=== PATIENT | female | born 1965 | race African-American/Black ===

== ENCOUNTER → 2016-07-19 | Outpatient (CLI) | payer MEDICARE, OTHER ==
[2016-03-02 15:00] VITALS: BP 144/86
[~2016-07-19] MED LIST: ACET500T33 PO; AMOX1TAB11 PO; ASPI81TA44 PO; BACL10TA PO; CALC600T11 PO; CHOL10007 PO; FLUT16SP NS; GABA-585 PO; HYDR-2666 PO; LISI-334 PO; LORA10TA3 PO; MULT1TAB42 PO; NITR100C62 PO; SERT100T8 PO; TRAM50TA PO; TRAZ50TA15 PO; TRIA15CR TP; hctz PO
--- NOTE | 2016-07-19 14:23 | KCIC ---
PROCEDURE Pelvic ultrasound. HISTORY Menorrhagia with regular cycle. TECHNIQUE Real-time ultrasound imaging of the pelvis using transabdominal window is performed. COMPARISON None. FINDINGS Enlarged myomatous uterus. Uterus measures 14.5 x 5.7 x 7.9 cm. There is a mostly calcified fibroid anteriorly towards the fundus measuring 1.9 x 1.5 x 1.6 cm. There is a hypoechoic fibroid in the mid uterus anteriorly measuring 1.7 x 2 x 1.9 cm. There is a partially calcified fibroid inferiorly in the anterior uterus measuring 3.4 x 3.5 x 3 cm. The endometrial stripe is normal measuring 5 millimeters. Incidentally visualized urinary bladder is unremarkable. The right ovary measures 3.1 x 2.1 x 4 cm. The left ovary measures 2.7 x 1.5 x 2.2 cm. There is normal blood flow in the ovaries. There is no pelvic free fluid. IMPRESSION 1. Enlarged myomatous uterus. Three anterior uterine fibroids are identified. 2. Normal blood flow in the ovaries. 3. The endometrial stripe is normal. Electronically signed by: Nestor Romo MD (Jul 19, 2016 14:22:04)
== END | disposition home or self-care (01) ==
LOC: KCIC US 10:53
PROVIDERS: ATTEND Family Medicine
DX: N85.2 Hypertrophy of uterus (principal); D25.9 Leiomyoma of uterus, unspecified
CPT/HCPCS: 76856

== ENCOUNTER → 2016-08-23 | Outpatient (CLI) | payer MEDICARE, OTHER ==
[2016-03-02 15:00] VITALS: BP 144/86
--- NOTE | 2016-08-23 15:54 | KCIC ---
PROCEDURE MRI cervical spine without contrast. HISTORY Upper extremity radiculopathy. Symptoms for months. Cerebral palsy. TECHNIQUE Sagittal T1, sagittal T2, sagittal STIR, axial T2, and axial T2 gradient sequences are provided. Despite repeat sequences there is motion degradation. COMPARISON None at this institution. FINDINGS There is straightening of cervical lordosis but no subluxation. There is no worrisome marrow lesion or marrow edema. There is no cord signal abnormality. Cervicomedullary junction is unremarkable. Degenerative findings by individual level are estimated below, allowing for motion degradation. C2-C3: There is uncinate process spurring on the right without canal or foraminal compromise. C3-C4: There is a disc osteophyte complex with central protrusion, probably a protruding disc. This contacts the cord and minimally flattens the cord centrally, midline AP diameter of the thecal sac 7 millimeters. There is minimal foraminal narrowing. C4-C5: There is a disc osteophyte complex effacing the ventral CSF column and minimally flattening the cord, 8 millimeters midline AP diameter of the thecal sac. There is also probably minimal right foraminal narrowing. C5-C6: Disc osteophyte complex and central protrusion are noted, midline AP diameter of the thecal sac narrowed to 8 millimeters. There is also minimal uncinate process spurring, without foraminal narrowing. C6-C7: Disc bulge is noted without canal or foraminal compromise. C7-T1: Disc bulge is noted without canal or foraminal compromise. IMPRESSION - Degenerative changes and uncinate process spurring are noted throughout the cervical spine. Findings are most notable at C3-C4 through C5-C6. - Motion limited study despite repeat imaging. Electronically signed by: Filiberto Han MD (Aug 23, 2016 15:53:19)
== END | disposition home or self-care (01) ==
LOC: KCIC MRI 14:24
PROVIDERS: ATTEND Family Medicine
DX: M54.12 Radiculopathy, cervical region (principal)
CPT/HCPCS: 72141

== ENCOUNTER → 2016-09-18 | Outpatient (CLI) | payer MEDICARE, OTHER ==
[2016-03-02 15:00] VITALS: BP 144/86
[~2016-09-18] MED LIST changes: +BACL20TA PO; +FERR-26 PO; +HYDR12.58 PO; +IBUP-1060 PO; +PREG150C PO; +[UNRECOGNIZED DRUG - CODE] PO
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
== END | disposition home or self-care (01) ==
LOC: PNCL 12:43
PROVIDERS: ATTEND Anesthesiology
DX: M54.2 Cervicalgia (principal); M79.602 Pain in left arm
CPT/HCPCS: G0463

== ENCOUNTER → 2016-10-10 | Outpatient (CLI) | payer MEDICARE, OTHER ==
[2016-03-02 15:00] VITALS: BP 144/86
[~2016-10-10] MED LIST changes: +IOHEXOL 180 MG/ML 10 ML VIAL. ONE; +methylPREDNISolone ACETATE 40 MG/ML VIAL. ONE; +methylPREDNISolone ACETATE 80 MG/ML VIAL. ONE
--- NOTE | 2016-10-10 22:01 | PAIN ---
DATE OF SERVICE: 10/10/2016 PROGRESS NOTE FOR PAIN CLINIC DIAGNOSES: Cervical radiculopathy with cervical degenerative disk disease and cervicalgia. HISTORY OF PRESENT ILLNESS: The patient is a 51-year-old female, who returns for followup status post initial evaluation and the patient had a low grade fever at that time. She ____ her primary care physician, had this treated is afebrile now has been this way for over a week, returns with still significant pain in the base of the neck and shoulders, more on the left than the right, radiating to the mid and low back as well. The patient reports some low back pain as well, which seems to be separate from the upper neck and shoulder pain. The patient with degenerative disk changes as noted on her MRI scan with radiculopathy, but also some low back pain across the low back, which she reports is difficult to lie down with the pain in this area as well as in the neck and shoulders, again somewhat worse on the left side radiating to left arm and hand as previously. The patient reports 10 on a scale of 10, aching, shooting, stabbing, off and on, but is worse with lying down in the low back as well. The patient reports no new motor or sensory deficits, no new bowel or bladder incontinence or other complaints. PHYSICAL EXAMINATION: VITAL SIGNS: Today, the patient's blood pressure is 125/86, pulse 74, respirations are 18, temperature 98.5 degrees Fahrenheit, height is 5 feet 2 inches, weight is 218 pounds. GENERAL: The patient is awake, alert, oriented, appropriate, very pleasant demeanor. HEENT: Head shows normocephalic, atraumatic. Extraocular movements are intact and symmetrical. Oral cavity, mucous membranes are moist and pink. Dentition is intact. NECK: Shows anterior throat supple without palpable lymphadenopathy noted. Swallow reflex is symmetrical. CHEST: Shows normal with inspection. Breath sounds clear to auscultation bilaterally. HEART: Shows S1 and S2 clear. ABDOMEN: Soft, nontender, nondistended. BACK: Shows spine grossly midline. Cervical paraspinous musculature shows symmetrical on inspection with palpation shows some moderate tenderness with palpation bilaterally in the inferior and middle aspect of the cervical paraspinous musculature, slightly more on the left than the right with some hypertrophy noted in the left trapezius compared to the right side, but no specific trigger points or radiation of pain noted. EXTREMITIES: Upper extremity show atrophy on the right upper extremity. Once again, left shows 2+/4 in the biceps tendons. 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 Options were discussed with the patient. We will proceed with a cervical epidural steroid injection today with fluoroscopic guidance. Risks were then discussed including, but not limited to bleeding, infection, possibility of epidural hematoma, subsequent neurologic compromise, dural puncture, headaches, spinal cord and/or nerve damage, side effects of steroid medication and poor results regarding pain control. The patient understands and wishes to proceed. The patient will return to clinic in approximately 2 weeks for followup, was counseled on return appointment, activity level and side effects to be aware of. DIAGNOSIS: Cervical radiculopathy with cervical degenerative disk disease. PROCEDURE: Cervical epidural steroid injection in translaminar approach at the C6-C7 level using C-arm fluoroscopic guidance under sterile prep and drape using local anesthetic. MEDICATIONS INJECTED: Depo-Medrol 120 mg plus 5 mL of preservative-free normal saline and 2 mL of Isovue for contrast. CONDITION AT DISCHARGE: Stable. The patient tolerated procedure well, had no complications. SUSAN RDZ MD DR: ANABELLA/juan JOB#: [id number] / [id number]
== END | disposition home or self-care (01) ==
LOC: PNCL 10:43
PROVIDERS: ATTEND Anesthesiology
DX: M50.123 Cervical disc disorder at C6-C7 level with radiculopathy (principal); I10 Essential (primary) hypertension; M19.90 Unspecified osteoarthritis, unspecified site; F32.9 Major depressive disorder, single episode, unspecified; Z86.69 Personal history of other diseases of the nervous system and sense organs
CPT/HCPCS: 62321; J1030; J1040

== ENCOUNTER → 2016-11-08 | Outpatient (CLI) | payer MEDICARE, OTHER ==
[2016-03-02 15:00] VITALS: BP 144/86
[~2016-11-08] MED LIST changes: -CALC600T11 PO; +CALC600T23 PO; +CHOL100014 PO; -CHOL10007 PO; -HYDR-2666 PO; +HYDR-2758 PO
--- NOTE | 2016-11-09 02:57 | PAIN ---
DATE OF SERVICE: 11/08/2016 PROGRESS NOTE FOR PAIN CLINIC DIAGNOSES: 1. Cervical radiculopathy with cervical degenerative disk disease and cervicalgia. 2. Low back pain with lumbar degenerative disk disease. HISTORY OF PRESENT ILLNESS: The patient is a 51-year-old female who returns for followup status post cervical epidural steroid injection x 1. The patient reports no significant decrease in her pain in the base of the neck and left upper extremity. The patient reports still significant pain, rated at 10 on a scale of 10. Her chief complaint today; however, is low back pain, which she has had previously, but has been much worse over the past few weeks with a tingling, burning sensation, stabbing, aching and sharp. The patient reports it is becoming worse in the low back itself even with minimal weightbearing. The patient is generally in a wheelchair, but with changing positions, transferring from wheelchair to standing or beds or chairs is becoming much more noticeable. The patient reports it awakens her from sleep at night in the neck and the low back, reports no new motor or sensory deficits, no new bowel or bladder incontinence, but still significant pain is noted. PHYSICAL EXAMINATION: VITAL SIGNS: The patient's blood pressure 132/69, pulse 81, respirations are 20, temperature is 98.0 degrees Fahrenheit. GENERAL: The patient is awake, alert, oriented, is appropriate, very pleasant demeanor. HEENT: Head shows normocephalic, atraumatic. Extraocular movements are intact and symmetrical. Oral cavity, mucous membranes are moist and pink. Dentition is intact. NECK: Shows anterior throat supple. Posterior cervical musculature shows some mild tenderness with palpation, but only in the inferior aspect of the cervical paraspinous musculature without radiation. Neck shows good rotational motion with some slight limitations in extension, but not with forward flexion. CHEST: Shows normal on inspection. Breath sounds are clear to auscultation bilaterally. HEART: Shows S1 and S2 clear. ABDOMEN: Soft, obese, nontender, nondistended. No palpable organomegaly is noted. BACK: Shows spine grossly in the midline. Lumbar paraspinous musculature is very firm with some moderate tenderness throughout the upper, middle and lower distribution of paraspinous muscles, but only diffusely. No radiation. EXTREMITIES: Upper right extremity with some atrophy and contracture. Left upper extremity is normal in appearance with good certified surgical tech/first assistant strength rated as a 5/5. Lower extremities showed deep tendon reflexes 1+ in the patellar and tendo calcaneus tendons. Motor exam is approximately 4 on a scale of 5 on the left side and 3-4 on a scale 5 on the right side with dorsiflexion, extension. The patient is wearing a supportive brace with some foot drop noted on the right side as well without complete . Options were discussed with the patient. The patient's old chart was reviewed as her current medication regimen updated. Current review of systems updated today as well. We will proceed with a lumbar epidural steroid injection today with fluoroscopic guidance. Risks were again discussed including, but not limited to bleeding, infection, possibility of epidural hematoma and subsequent neurologic compromise, dural puncture, headaches, spinal cord and/or nerve damage, side effects of steroid medication and poor results regarding pain control. The patient understands and wishes to proceed. The patient will return to clinic in approximately 2 weeks for followup. She was counseled as to return appointment, activity level and side effects to be aware of. DIAGNOSIS: Lumbar degenerative disk disease with low back pain. PROCEDURE: Lumbar epidural steroid injection in translaminar approach at the L4-L5 level using C-arm fluoroscopic guidance under sterile prep and drape using local anesthetic. MEDICATION INJECTED: 120 mg Depo-Medrol plus 10 mL of preservative-free normal saline and 2 mL of Isovue for contrast. CONDITION AT DISCHARGE: Stable. The patient tolerated procedure well, had no complications. SUSAN RDZ MD DR: ANABELLA/juan JOB#: [id number] / [id number]
== END | disposition home or self-care (01) ==
LOC: PNCL 13:56
PROVIDERS: ATTEND Anesthesiology
DX: M51.36 Other intervertebral disc degeneration, lumbar region (principal); M50.10 Cervical disc disorder with radiculopathy, unspecified cervical region; I10 Essential (primary) hypertension; M19.90 Unspecified osteoarthritis, unspecified site; F32.9 Major depressive disorder, single episode, unspecified; Z86.69 Personal history of other diseases of the nervous system and sense organs; Z87.39 Personal history of other diseases of the musculoskeletal system and connective tissue
CPT/HCPCS: 62323; J1030; J1040

== ENCOUNTER → 2016-12-06 | Outpatient (CLI) | payer MEDICARE, OTHER ==
[2016-03-02 15:00] VITALS: BP 144/86
== END | disposition home or self-care (01) ==
LOC: PNCL 11:35
PROVIDERS: ATTEND Anesthesiology
DX: M51.16 Intervertebral disc disorders with radiculopathy, lumbar region (principal); I10 Essential (primary) hypertension; M19.90 Unspecified osteoarthritis, unspecified site; F32.9 Major depressive disorder, single episode, unspecified; Z87.39 Personal history of other diseases of the musculoskeletal system and connective tissue; Z86.69 Personal history of other diseases of the nervous system and sense organs
CPT/HCPCS: 62323; J1030; J1040

== ENCOUNTER 2018-01-17 10:24 | Inpatient (IN) | payer MEDICARE, OTHER ==
[~2018-01-17] VITALS: Ht 157.5 cm; Wt 100.8 kg
[~2018-01-17 10:24] MED LIST changes: -ASPI81TA44 PO; +ASPI81TA59 PO; +CEFP100T PO; -FERR-26 PO; +FERR325T14 PO; +Fluconazole PO; -IOHEXOL 180 MG/ML 10 ML VIAL. ONE; +TRAZ-85 PO; -TRAZ50TA15 PO; +VANC500V PO; -methylPREDNISolone ACETATE 40 MG/ML VIAL. ONE; -methylPREDNISolone ACETATE 80 MG/ML VIAL. ONE
--- NOTE | 2018-01-17 11:05 | PHYS DOC ---
Past Medical History Past Medical History: Hypertension, UTI, Other Additional Past Medical Histor: cerebral palsy, prediabetes, MRDD Past Surgical History: Other Additional Past Surgical Histo: right hip Alcohol Use: None Drug Use: None Adult General Chief Complaint Chief Complaint: CELLULITIS HPI HPI 52-year-old female presenting to the emergency department today with right- sided cellulitis. This started 2-3 days ago. He describes a mild pain that is nonradiating intermittent. She is here with her healthcare worker. She accidentally neck today with right side of her leg and has a small wound. Review of systems is negative for chest pain shortness of breath abdominal pain nausea vomiting. All other review of systems is negative unless otherwise noted in history of present illness. ED course: 52-year-old female presenting to the emergency department today with right lower extremity. The patient had been treated with intravenous Rocephin along with oral Keflex to go home with however her cellulitis is not improving. Given the patient's failure of outpatient antibiotic therapy will give the patient IV vancomycin and admit the patient for IV antibiotics for treatment of acute cellulitis. I discussed with Dr. Sage who accepted the patient for admission. basic bridge orders placed. I also placed a consult for infectious disease physician to come to see the patient. Review of Systems Review of Systems SEE ABOVE. Current Medications Current Medications Current Medications Medications (Trade) Dose Ordered Sig/Law Start Time Stop Time Status Last Admin Dose Admin Ceftriaxone Sodium 50 ml @ 100 mls/hr 1X ONCE 01/17/18 11:15 01/17/18 11:21 DC Morphine Sulfate (Morphine Sulfate) 2 mg PRN Q2HR PRN 01/17/18 11:30 01/18/18 11:29 Ondansetron HCl (Zofran) 4 mg PRN Q8HRS PRN 01/17/18 11:30 01/18/18 11:29 Sodium Chloride 1,000 ml @ 75 mls/hr [id number] 01/17/18 11:30 01/18/18 11:29 01/17/18 11:54 75 MLS/HR Vancomycin HCl (Vanco Per Pharmacy) 1 each PRN DAILY PRN 01/17/18 11:30 UNV Vancomycin HCl 2 gm/Sodium Chloride 500 ml @ 250 mls/hr 1X ONCE 01/17/18 11:30 01/17/18 13:29 01/17/18 11:54 250 MLS/HR Allergies Allergies Allergies Coded Allergies Type Severity Reaction Last Updated Verified CARISSA Inhibitors Allergy Intermediate Edema 01/17/18 Yes amphetamine Allergy Intermediate Edema 01/17/18 Yes dextroamphetamine Allergy Intermediate Edema 01/17/18 Yes lisinopril Allergy Intermediate Edema 01/17/18 Yes ziprasidone Allergy Intermediate Edema 01/17/18 Yes Physical Exam Physical Exam SEE ABOVE Constitutional: Well developed, well nourished, no acute distress, non-toxic appearance. [] HENT: Normocephalic, atraumatic, bilateral external ears normal, oropharynx moist, no oral exudates, nose normal. [] Eyes: PERRLA, EOMI, conjunctiva normal, no discharge. [] Neck: Normal range of motion, no tenderness, supple, no stridor. [] Cardiovascular:Heart rate regular rhythm, no murmur [] Lungs & Thorax: Bilateral breath sounds clear to auscultation [] Abdomen: Bowel sounds normal, soft, no tenderness, no masses, no pulsatile masses. [] Skin: Warm, dry, no erythema, no rash. [] Back: No tenderness, no CVA tenderness. [] Extremities: The patient's right lower extremity has mild swelling with erythema. It is warm to touch. Consistent with cellulitis. We kenan a line around the area of erythema and dated for monitoring. Neurologic: Alert and oriented X 3, normal motor function, normal sensory function, no focal deficits noted. [] Psychologic: Affect normal, judgement normal, mood normal. [] Current Patient Data Vital Signs Vital Signs Date Time Temp Pulse Resp B/P (MAP) Pulse Ox O2 Delivery O2 Flow Rate FiO2 01/17/18 10:25 98.6 71 24 143/84 (103) 96 Room Air 98.6 Lab Values Laboratory Tests Test 01/17/18 11:35 White Blood Count 6.6 x10^3/uL (4.0-11.0) Red Blood Count 4.76 x10^6/uL (3.50-5.40) Hemoglobin 12.7 g/dL (12.0-15.5) Hematocrit 38.9 % (36.0-47.0) Mean Corpuscular Volume 82 fL (79-100) Mean Corpuscular Hemoglobin 27 pg (25-35) Mean Corpuscular Hemoglobin Concent 33 g/dL (31-37) Red Cell Distribution Width 16.5 % (11.5-14.5) H Platelet Count 341 x10^3/uL (140-400) Neutrophils (%) (Auto) 43 % (31-73) Lymphocytes (%) (Auto) 42 % (24-48) Monocytes (%) (Auto) 10 % (0-9) H Eosinophils (%) (Auto) 3 % (0-3) Basophils (%) (Auto) 2 % (0-3) Neutrophils # (Auto) 2.8 x10^3uL (1.8-7.7) Lymphocytes # (Auto) 2.8 x10^3/uL (1.0-4.8) Monocytes # (Auto) 0.6 x10^3/uL (0.0-1.1) Eosinophils # (Auto) 0.2 x10^3/uL (0.0-0.7) Basophils # (Auto) 0.1 x10^3/uL (0.0-0.2) Sodium Level 137 mmol/L (136-145) Potassium Level 3.8 mmol/L (3.5-5.1) Chloride Level 103 mmol/L (98-107) Carbon Dioxide Level 30 mmol/L (21-32) Anion Gap 4 (6-14) L Blood Urea Nitrogen 11 mg/dL (7-20) Creatinine 0.6 mg/dL (0.6-1.0) Estimated GFR (Cockcroft-Gault) 128.0 Glucose Level 82 mg/dL (70-99) Calcium Level 9.8 mg/dL (8.5-10.1) Laboratory Tests 01/17/18 11:35 Laboratory Tests 01/17/18 11:35 EKG EKG [] Radiology/Procedures Radiology/Procedures [] Course & Med Decision Making Course & Med Decision Making Pertinent Labs and Imaging studies reviewed. (See chart for details) [] Dragon Disclaimer Dragon Disclaimer This electronic medical record was generated, in whole or in part, using a voice recognition dictation system. Departure Departure Impression: Primary Impression: Cellulitis of right leg Disposition: ADMITTED INPATIENT Admitting Physician: Xie. Lama Condition: STABLE Referrals: UNKNOWN PCP NAME (PCP) Patient Instructions: Cellulitis Scripts Cephalexin (KEFLEX) 250 Mg Capsule 1 CAP PO QID, #28 CAP Prov: ANTONIA BRADLEY MD 01/17/18 ANTONIA BRADLEY MD Jan 17, 2018 11:05
[2018-01-17] MEDS ORDERED: CEPH-263 PO (11:06)
[2018-01-17] MEDS ORDERED: VANCOMYCIN 2 GM in IV NORMAL SALINE 500ML BAG 500 ML IV ONE (11:30)
[2018-01-17] MEDS ORDERED: ONDANSETRON PF 4 MG/2 ML VIAL. IV PRN ×2 (11:30→14:00)
[2018-01-17] MEDS ORDERED: MORPHINE SULFATE 2 MG/ML VIAL. IV PRN ×2 (11:30→14:00)
[2018-01-17 11:54] LABS: BASO # 0.1 x10^3/uL (0.0-0.2); BASO % 2 % (0-3); EOS # 0.2 x10^3/uL (0.0-0.7); EOS % 3 % (0-3); HEMATOCRIT 38.9 % (36.0-47.0); HEMOGLOBIN 12.7 g/dL (12.0-15.5); LYMPH # 2.8 x10^3/uL (1.0-4.8); LYMPH % 42 % (24-48); MEAN CORPUSCULAR HEMOGLOBIN 27 pg (25-35); MEAN CORPUSCULAR HGB CONC 33 g/dL (31-37); MEAN CORPUSCULAR VOLUME 82 fL (79-100); MONO # 0.6 x10^3/uL (0.0-1.1); MONO % 10 % (0-9); NEUT # 2.8 x10^3uL (1.8-7.7); NEUT % 43 % (31-73); PLATELET COUNT 341 x10^3/uL (140-400); RED BLOOD COUNT 4.76 x10^6/uL (3.50-5.40); RED CELL DISTRIBUTION WIDTH 16.5 % (11.5-14.5); WHITE BLOOD COUNT 6.6 x10^3/uL (4.0-11.0)
[2018-01-17] MEDS: IV NORMAL SALINE 1000ML BAG 1,000 ML IV SCH (11:54)
[2018-01-17 12:03] LABS: CALCIUM 9.8 mg/dL (8.5-10.1); CREATININE 0.6 mg/dL (0.6-1.0); POTASSIUM 3.8 mmol/L (3.5-5.1)
[2018-01-17 13:30] VITALS: BP 138/79
[2018-01-17] MEDS ORDERED: traMADol 50 MG TABLET PO PRN (14:00)
[2018-01-17] MEDS ORDERED: ACETAMINOPHEN 325 MG TABLET. PO PRN (14:00)
[2018-01-17] MEDS ORDERED: DOCUSATE SODIUM 100 MG CAPSULE. PO PRN (14:00)
--- NOTE | 2018-01-17 14:02 | PDOC1 ---
History and Physical Date of Admission Date of Admission 01/17/18 Identification/Chief Complaint Chief Complaint rt leg cellulitis Source Source: Caregiver, Chart review, Patient History of Present Illness History of Present Illness HPI HPI 52-year-old female presenting to the emergency department today with right- sided cellulitis. PT HAS cerebral palsy, [place] and has a daycare assistant at bedside. pt can talk slowly, knows in hosp,but said [facility], knows the day, knows comes here for rt leg pain. daycare assistant said no fever, chills, was here 2 months ago for same thing. Went to urgent care on Saturday, got ceftriaxone x1, then takes keflex, came today since not better. The rt leg has a small open wound, with redness, swollen, tenderness. has diarrhea this week, last time today. Past Medical History Cardiovascular: HTN Pulmonary: No pertinent hx GI: No pertinent hx Heme/Onc: No pertinent hx Hepatobiliary: No pertinent hx Psych: Depression Rheumatologic: No pertinent hx Infectious disease: No pertinent hx, Other Renal/: No pertinent hx Endocrine: No pertinent hx Past Surgical History Past Surgical History: Total hip replacement Family History Family History: Diabetes, Heart Disease, Hypertension Social History Smoke: No ALCOHOL: none Drugs: None Current Problem List Problem List Problems Medical Problems: (1) Cellulitis of right leg Status: Acute Current Medications Current Medications Current Medications Medications (Trade) Dose Ordered Sig/Law Start Time Stop Time Status Last Admin Dose Admin Ceftriaxone Sodium 50 ml @ 100 mls/hr 1X ONCE 01/17/18 11:15 01/17/18 11:21 DC Morphine Sulfate (Morphine Sulfate) 2 mg PRN Q2HR PRN 01/17/18 11:30 01/18/18 11:29 Ondansetron HCl (Zofran) 4 mg PRN Q8HRS PRN 01/17/18 11:30 01/18/18 11:29 Sodium Chloride 1,000 ml @ 75 mls/hr [id number] 01/17/18 11:30 01/18/18 11:29 01/17/18 11:54 75 MLS/HR Vancomycin HCl (Vanco Per Pharmacy) 1 each PRN DAILY PRN 01/17/18 11:30 Vancomycin HCl 2 gm/Sodium Chloride 500 ml @ 250 mls/hr 1X ONCE 01/17/18 11:30 01/17/18 13:29 DC 01/17/18 11:54 250 MLS/HR Allergies Allergies Allergies Coded Allergies Type Severity Reaction Last Updated Verified CARISSA Inhibitors Allergy Intermediate Edema 01/17/18 Yes amphetamine Allergy Intermediate Edema 01/17/18 Yes dextroamphetamine Allergy Intermediate Edema 01/17/18 Yes lisinopril Allergy Intermediate Edema 01/17/18 Yes ziprasidone Allergy Intermediate Edema 01/17/18 Yes ROS Review of System CONSTITUTIONAL: No fever or chills EYES: No recent changes SKIN: No rash or itching CARDIOVASCULAR: No chest pain, syncope, palpitations, or edema RESPIRATORY: No SOB or cough GASTROINTESTINAL: No nausea, vomiting or abdominal pain NEUROLOGICAL: No headaches or weakness ENDOCRINE: No cold or heat intolerance GENITOURINARY: No urgency or frequency of urination MUSCULOSKELETAL: No back pain or joint pain LYMPHATICS: No enlarged lymph nodes PSYCHIATRIC: No anxiety or depression Physical Exam Physical Exam GEN.: No apparent distress. Alert and oriented. aaox2, talkes slowly, wheel chair bound. HEENT: Head is normocephalic, atraumatic NECK: Supple. LUNGS: Clear to auscultation. HEART: RRR, S1, S2 present. Peripheral pulses intact ABDOMEN: Soft, nontender. Positive bowel sounds. EXTREMITIES: Without any cyanosis. NEUROLOGIC: Normal speech, normal tone PSYCHIATRIC: Normal affect, normal mood. SKIN: rt leg middle part swollen, redness, lateral aspect has a small open wound, tenderness. Vitals Vitals Vital Signs Date Time Temp Pulse Resp B/P (MAP) Pulse Ox O2 Delivery O2 Flow Rate FiO2 01/17/18 13:30 98.7 67 138/79 (98) 97 Room Air 98.7 01/17/18 11:41 24 Labs Labs Laboratory Tests Test 01/17/18 11:35 01/17/18 13:23 White Blood Count 6.6 x10^3/uL (4.0-11.0) Red Blood Count 4.76 x10^6/uL (3.50-5.40) Hemoglobin 12.7 g/dL (12.0-15.5) Hematocrit 38.9 % (36.0-47.0) Mean Corpuscular Volume 82 fL (79-100) Mean Corpuscular Hemoglobin 27 pg (25-35) Mean Corpuscular Hemoglobin Concent 33 g/dL (31-37) Red Cell Distribution Width 16.5 % (11.5-14.5) Platelet Count 341 x10^3/uL (140-400) Neutrophils (%) (Auto) 43 % (31-73) Lymphocytes (%) (Auto) 42 % (24-48) Monocytes (%) (Auto) 10 % (0-9) Eosinophils (%) (Auto) 3 % (0-3) Basophils (%) (Auto) 2 % (0-3) Neutrophils # (Auto) 2.8 x10^3uL (1.8-7.7) Lymphocytes # (Auto) 2.8 x10^3/uL (1.0-4.8) Monocytes # (Auto) 0.6 x10^3/uL (0.0-1.1) Eosinophils # (Auto) 0.2 x10^3/uL (0.0-0.7) Basophils # (Auto) 0.1 x10^3/uL (0.0-0.2) Sodium Level 137 mmol/L (136-145) Potassium Level 3.8 mmol/L (3.5-5.1) Chloride Level 103 mmol/L (98-107) Carbon Dioxide Level 30 mmol/L (21-32) Anion Gap 4 (6-14) Blood Urea Nitrogen 11 mg/dL (7-20) Creatinine 0.6 mg/dL (0.6-1.0) Estimated GFR (Cockcroft-Gault) 128.0 Glucose Level 82 mg/dL (70-99) Calcium Level 9.8 mg/dL (8.5-10.1) Glucose (Fingerstick) 74 mg/dL (70-99) Laboratory Tests Test 01/17/18 11:35 01/17/18 13:23 White Blood Count 6.6 x10^3/uL (4.0-11.0) Red Blood Count 4.76 x10^6/uL (3.50-5.40) Hemoglobin 12.7 g/dL (12.0-15.5) Hematocrit 38.9 % (36.0-47.0) Mean Corpuscular Volume 82 fL (79-100) Mean Corpuscular Hemoglobin 27 pg (25-35) Mean Corpuscular Hemoglobin Concent 33 g/dL (31-37) Red Cell Distribution Width 16.5 % (11.5-14.5) Platelet Count 341 x10^3/uL (140-400) Neutrophils (%) (Auto) 43 % (31-73) Lymphocytes (%) (Auto) 42 % (24-48) Monocytes (%) (Auto) 10 % (0-9) Eosinophils (%) (Auto) 3 % (0-3) Basophils (%) (Auto) 2 % (0-3) Neutrophils # (Auto) 2.8 x10^3uL (1.8-7.7) Lymphocytes # (Auto) 2.8 x10^3/uL (1.0-4.8) Monocytes # (Auto) 0.6 x10^3/uL (0.0-1.1) Eosinophils # (Auto) 0.2 x10^3/uL (0.0-0.7) Basophils # (Auto) 0.1 x10^3/uL (0.0-0.2) Sodium Level 137 mmol/L (136-145) Potassium Level 3.8 mmol/L (3.5-5.1) Chloride Level 103 mmol/L (98-107) Carbon Dioxide Level 30 mmol/L (21-32) Anion Gap 4 (6-14) Blood Urea Nitrogen 11 mg/dL (7-20) Creatinine 0.6 mg/dL (0.6-1.0) Estimated GFR (Cockcroft-Gault) 128.0 Glucose Level 82 mg/dL (70-99) Calcium Level 9.8 mg/dL (8.5-10.1) Glucose (Fingerstick) 74 mg/dL (70-99) VTE Prophylaxis Ordered VTE Prophylaxis Devices: Yes VTE Pharmacological Prophylaxi: Yes Assessment/Plan Assessment/Plan rt leg cellulitits h/o cdiff HTN cerebral palsy, talks slow, wheel chair bound morbid obesity plan: id consult vanco for now wound cx pending wound care cdiff cont some home meds pain control dvt ppx MCKENZIE VALVERDE MD Jan 17, 2018 14:02
[2018-01-17] MEDS ORDERED: TRIAMCINOLONE ACETONIDE 0.1% TOPICAL CREAM 15GM TUBE. TP PRN (14:30)
[2018-01-17] MEDS ORDERED: GABAPENTIN 100 MG CAPSULE. PO SCH (14:30)
[2018-01-17 15:00] VITALS: BP 110/72
[2018-01-17] MEDS: SERTRALINE 50 MG TABLET. PO SCH (15:17)
[2018-01-17] MEDS: MULTIVITAMIN with MINERAL TABLET. PO SCH (15:18)
[2018-01-17] MEDS: CETIRIZINE HCL 10 MG TABLET. PO SCH (15:18)
[2018-01-17] MEDS: ASPIRIN CHEWABLE 81 MG TABLET. PO SCH (15:18)
[2018-01-17] MEDS: ENOXAPARIN 40 MG/0.4 ML SYRINGE. SQ SCH ×3 (15:19→20:47)
[2018-01-17] MEDS: BACLOFEN 10 MG TABLET. PO SCH ×2 (15:19→20:42)
[2018-01-17] MEDS: PREGABALIN 75 MG CAPSULE PO SCH ×2 (15:19→20:41)
--- NOTE | 2018-01-17 16:12 | RAD ---
Right lower leg ultrasound, 01/17/2018: HISTORY: Lower leg and ankle redness and swelling The area of clinical concern in the lower leg and ankle regions was carefully scanned. There is moderate diffuse subcutaneous edema. No mass is identified. No discrete fluid collection is seen to suggest abscess. Electronically signed by: Tony Rascon MD (01/17/2018 4:09 PM) [facility]
[2018-01-17] MEDS: VANCOMYCIN PER PHARMACY MC PRN (16:37)
[2018-01-17] MEDS: FERROUS SULFATE 325 MG TABLET. PO SCH (16:51)
[2018-01-17] MEDS: FLUTICASONE 50MCG/NASAL SPRAY 16GM BOTTLE. NS SCH (16:51)
[2018-01-17 19:00] VITALS: BP 104/64
[2018-01-17 22:56] VITALS: BP 104/73
[2018-01-18] MEDS: VANCOMYCIN 1.5 GM in IV NORMAL SALINE 500ML BAG 500 ML IV SCH ×2 (00:40→12:50)
[2018-01-18 02:50] VITALS: BP 107/63
[2018-01-18 05:05] LABS: BASO % 0 % (0-3); EOS # 0.2 x10^3/uL (0.0-0.7); EOS % 3 % (0-3); HEMATOCRIT 35.8 % (36.0-47.0); HEMOGLOBIN 11.5 g/dL (12.0-15.5); LYMPH # 2.9 x10^3/uL (1.0-4.8); LYMPH % 43 % (24-48); MEAN CORPUSCULAR HEMOGLOBIN 27 pg (25-35); MEAN CORPUSCULAR HGB CONC 32 g/dL (31-37); MEAN CORPUSCULAR VOLUME 83 fL (79-100); MONO # 0.4 x10^3/uL (0.0-1.1); MONO % 7 % (0-9); NEUT # 3.1 x10^3uL (1.8-7.7); NEUT % 47 % (31-73); PLATELET COUNT 291 x10^3/uL (140-400); RED CELL DISTRIBUTION WIDTH 16.3 % (11.5-14.5); WHITE BLOOD COUNT 6.6 x10^3/uL (4.0-11.0)
[2018-01-18 05:45] LABS: CREATININE 0.7 mg/dL (0.6-1.0); GFR 107.2; POTASSIUM 3.4 mmol/L (3.5-5.1)
[2018-01-18 07:00] VITALS: BP 132/82
[2018-01-18] MEDS ORDERED: POTASSIUM CHLORIDE 20 MEQ TABLET.ER. PO ONE (09:00)
[2018-01-18] MEDS: SERTRALINE 50 MG TABLET. PO SCH (09:04)
[2018-01-18] MEDS: BACLOFEN 10 MG TABLET. PO SCH ×3 (09:05→20:37)
[2018-01-18] MEDS: PREGABALIN 75 MG CAPSULE PO SCH ×2 (09:05→20:37)
[2018-01-18] MEDS: FERROUS SULFATE 325 MG TABLET. PO SCH ×3 (09:05→17:09)
[2018-01-18] MEDS: ASPIRIN CHEWABLE 81 MG TABLET. PO SCH (09:05)
[2018-01-18] MEDS: CETIRIZINE HCL 10 MG TABLET. PO SCH (09:05)
[2018-01-18] MEDS: MULTIVITAMIN with MINERAL TABLET. PO SCH (09:05)
[2018-01-18] MEDS: ENOXAPARIN 40 MG/0.4 ML SYRINGE. SQ SCH ×2 (09:06→20:37)
[2018-01-18] MEDS: HYDROcodone/APAP 5/325MG 1 TAB TABLET PO PRN (09:06)
[2018-01-18] MEDS: FLUTICASONE 50MCG/NASAL SPRAY 16GM BOTTLE. NS SCH (09:06)
[2018-01-18] MEDS: IV NORMAL SALINE 1000ML BAG 1,000 ML IV SCH (09:14)
--- NOTE | 2018-01-18 10:01 | PDOC ---
PROGRESS NOTES Chief Complaint Chief Complaint rt leg cellulitits h/o cdiff HTN cerebral palsy, wheel chair bound morbid obesity History of Present Illness History of Present Illness Right leg cellulitis actually looks better No midnight calls Afebrile Labs reviewed otherwise okay except for mild hypokalemia at 3.4 She complains of left arm pain to me today Plan: Continue IV antibiotics per ID KCl 40 by mouth 1 PT OT, other supportive meds We'll go home with her 24 hour care on discharge Vitals Vitals Vital Signs Date Time Temp Pulse Resp B/P (MAP) Pulse Ox O2 Delivery O2 Flow Rate FiO2 01/18/18 09:06 18 96 Room Air 01/18/18 07:00 98.8 71 132/82 (99) 98.8 Physical Exam General: Alert, Oriented X3, Cooperative, No acute distress Heart: Regular rate, Normal S1 Lungs: Clear Abdomen: Normal bowel sounds, Soft Extremities: No clubbing, No cyanosis Skin: No rashes, No breakdown Labs LABS Laboratory Tests Test 01/17/18 11:35 01/17/18 13:23 01/17/18 16:36 01/17/18 20:24 White Blood Count 6.6 x10^3/uL (4.0-11.0) Red Blood Count 4.76 x10^6/uL (3.50-5.40) Hemoglobin 12.7 g/dL (12.0-15.5) Hematocrit 38.9 % (36.0-47.0) Mean Corpuscular Volume 82 fL (79-100) Mean Corpuscular Hemoglobin 27 pg (25-35) Mean Corpuscular Hemoglobin Concent 33 g/dL (31-37) Red Cell Distribution Width 16.5 % (11.5-14.5) Platelet Count 341 x10^3/uL (140-400) Neutrophils (%) (Auto) 43 % (31-73) Lymphocytes (%) (Auto) 42 % (24-48) Monocytes (%) (Auto) 10 % (0-9) Eosinophils (%) (Auto) 3 % (0-3) Basophils (%) (Auto) 2 % (0-3) Neutrophils # (Auto) 2.8 x10^3uL (1.8-7.7) Lymphocytes # (Auto) 2.8 x10^3/uL (1.0-4.8) Monocytes # (Auto) 0.6 x10^3/uL (0.0-1.1) Eosinophils # (Auto) 0.2 x10^3/uL (0.0-0.7) Basophils # (Auto) 0.1 x10^3/uL (0.0-0.2) Sodium Level 137 mmol/L (136-145) Potassium Level 3.8 mmol/L (3.5-5.1) Chloride Level 103 mmol/L (98-107) Carbon Dioxide Level 30 mmol/L (21-32) Anion Gap 4 (6-14) Blood Urea Nitrogen 11 mg/dL (7-20) Creatinine 0.6 mg/dL (0.6-1.0) Estimated GFR (Cockcroft-Gault) 128.0 Glucose Level 82 mg/dL (70-99) Calcium Level 9.8 mg/dL (8.5-10.1) Glucose (Fingerstick) 74 mg/dL (70-99) 147 mg/dL (70-99) 99 mg/dL (70-99) Test 01/18/18 03:40 White Blood Count 6.6 x10^3/uL (4.0-11.0) Red Blood Count 4.30 x10^6/uL (3.50-5.40) Hemoglobin 11.5 g/dL (12.0-15.5) Hematocrit 35.8 % (36.0-47.0) Mean Corpuscular Volume 83 fL (79-100) Mean Corpuscular Hemoglobin 27 pg (25-35) Mean Corpuscular Hemoglobin Concent 32 g/dL (31-37) Red Cell Distribution Width 16.3 % (11.5-14.5) Platelet Count 291 x10^3/uL (140-400) Neutrophils (%) (Auto) 47 % (31-73) Lymphocytes (%) (Auto) 43 % (24-48) Monocytes (%) (Auto) 7 % (0-9) Eosinophils (%) (Auto) 3 % (0-3) Basophils (%) (Auto) 0 % (0-3) Neutrophils # (Auto) 3.1 x10^3uL (1.8-7.7) Lymphocytes # (Auto) 2.9 x10^3/uL (1.0-4.8) Monocytes # (Auto) 0.4 x10^3/uL (0.0-1.1) Eosinophils # (Auto) 0.2 x10^3/uL (0.0-0.7) Basophils # (Auto) 0.0 x10^3/uL (0.0-0.2) Sodium Level 143 mmol/L (136-145) Potassium Level 3.4 mmol/L (3.5-5.1) Chloride Level 107 mmol/L (98-107) Carbon Dioxide Level 30 mmol/L (21-32) Anion Gap 6 (6-14) Blood Urea Nitrogen 10 mg/dL (7-20) Creatinine 0.7 mg/dL (0.6-1.0) Estimated GFR (Cockcroft-Gault) 107.2 Glucose Level 90 mg/dL (70-99) Calcium Level 8.0 mg/dL (8.5-10.1) Review of Systems Review of Systems left Arm pain otherwise rest of ROS 14 point negative Assessment and Plan Assessmemt and Plan Problems Medical Problems: (1) Cellulitis of right leg Status: Acute Comment Review of Relevant I have reviewed the following items sarah (where applicable) has been applied. Labs Laboratory Tests Test 01/17/18 11:35 01/17/18 13:23 01/17/18 16:36 01/17/18 20:24 White Blood Count 6.6 x10^3/uL (4.0-11.0) Red Blood Count 4.76 x10^6/uL (3.50-5.40) Hemoglobin 12.7 g/dL (12.0-15.5) Hematocrit 38.9 % (36.0-47.0) Mean Corpuscular Volume 82 fL (79-100) Mean Corpuscular Hemoglobin 27 pg (25-35) Mean Corpuscular Hemoglobin Concent 33 g/dL (31-37) Red Cell Distribution Width 16.5 % (11.5-14.5) Platelet Count 341 x10^3/uL (140-400) Neutrophils (%) (Auto) 43 % (31-73) Lymphocytes (%) (Auto) 42 % (24-48) Monocytes (%) (Auto) 10 % (0-9) Eosinophils (%) (Auto) 3 % (0-3) Basophils (%) (Auto) 2 % (0-3) Neutrophils # (Auto) 2.8 x10^3uL (1.8-7.7) Lymphocytes # (Auto) 2.8 x10^3/uL (1.0-4.8) Monocytes # (Auto) 0.6 x10^3/uL (0.0-1.1) Eosinophils # (Auto) 0.2 x10^3/uL (0.0-0.7) Basophils # (Auto) 0.1 x10^3/uL (0.0-0.2) Sodium Level 137 mmol/L (136-145) Potassium Level 3.8 mmol/L (3.5-5.1) Chloride Level 103 mmol/L (98-107) Carbon Dioxide Level 30 mmol/L (21-32) Anion Gap 4 (6-14) Blood Urea Nitrogen 11 mg/dL (7-20) Creatinine 0.6 mg/dL (0.6-1.0) Estimated GFR (Cockcroft-Gault) 128.0 Glucose Level 82 mg/dL (70-99) Calcium Level 9.8 mg/dL (8.5-10.1) Glucose (Fingerstick) 74 mg/dL (70-99) 147 mg/dL (70-99) 99 mg/dL (70-99) Test 01/18/18 03:40 White Blood Count 6.6 x10^3/uL (4.0-11.0) Red Blood Count 4.30 x10^6/uL (3.50-5.40) Hemoglobin 11.5 g/dL (12.0-15.5) Hematocrit 35.8 % (36.0-47.0) Mean Corpuscular Volume 83 fL (79-100) Mean Corpuscular Hemoglobin 27 pg (25-35) Mean Corpuscular Hemoglobin Concent 32 g/dL (31-37) Red Cell Distribution Width 16.3 % (11.5-14.5) Platelet Count 291 x10^3/uL (140-400) Neutrophils (%) (Auto) 47 % (31-73) Lymphocytes (%) (Auto) 43 % (24-48) Monocytes (%) (Auto) 7 % (0-9) Eosinophils (%) (Auto) 3 % (0-3) Basophils (%) (Auto) 0 % (0-3) Neutrophils # (Auto) 3.1 x10^3uL (1.8-7.7) Lymphocytes # (Auto) 2.9 x10^3/uL (1.0-4.8) Monocytes # (Auto) 0.4 x10^3/uL (0.0-1.1) Eosinophils # (Auto) 0.2 x10^3/uL (0.0-0.7) Basophils # (Auto) 0.0 x10^3/uL (0.0-0.2) Sodium Level 143 mmol/L (136-145) Potassium Level 3.4 mmol/L (3.5-5.1) Chloride Level 107 mmol/L (98-107) Carbon Dioxide Level 30 mmol/L (21-32) Anion Gap 6 (6-14) Blood Urea Nitrogen 10 mg/dL (7-20) Creatinine 0.7 mg/dL (0.6-1.0) Estimated GFR (Cockcroft-Gault) 107.2 Glucose Level 90 mg/dL (70-99) Calcium Level 8.0 mg/dL (8.5-10.1) Laboratory Tests Test 01/17/18 11:35 01/17/18 13:23 01/17/18 16:36 01/17/18 20:24 White Blood Count 6.6 x10^3/uL (4.0-11.0) Red Blood Count 4.76 x10^6/uL (3.50-5.40) Hemoglobin 12.7 g/dL (12.0-15.5) Hematocrit 38.9 % (36.0-47.0) Mean Corpuscular Volume 82 fL (79-100) Mean Corpuscular Hemoglobin 27 pg (25-35) Mean Corpuscular Hemoglobin Concent 33 g/dL (31-37) Red Cell Distribution Width 16.5 % (11.5-14.5) Platelet Count 341 x10^3/uL (140-400) Neutrophils (%) (Auto) 43 % (31-73) Lymphocytes (%) (Auto) 42 % (24-48) Monocytes (%) (Auto) 10 % (0-9) Eosinophils (%) (Auto) 3 % (0-3) Basophils (%) (Auto) 2 % (0-3) Neutrophils # (Auto) 2.8 x10^3uL (1.8-7.7) Lymphocytes # (Auto) 2.8 x10^3/uL (1.0-4.8) Monocytes # (Auto) 0.6 x10^3/uL (0.0-1.1) Eosinophils # (Auto) 0.2 x10^3/uL (0.0-0.7) Basophils # (Auto) 0.1 x10^3/uL (0.0-0.2) Sodium Level 137 mmol/L (136-145) Potassium Level 3.8 mmol/L (3.5-5.1) Chloride Level 103 mmol/L (98-107) Carbon Dioxide Level 30 mmol/L (21-32) Anion Gap 4 (6-14) Blood Urea Nitrogen 11 mg/dL (7-20) Creatinine 0.6 mg/dL (0.6-1.0) Estimated GFR (Cockcroft-Gault) 128.0 Glucose Level 82 mg/dL (70-99) Calcium Level 9.8 mg/dL (8.5-10.1) Glucose (Fingerstick) 74 mg/dL (70-99) 147 mg/dL (70-99) 99 mg/dL (70-99) Test 01/18/18 03:40 White Blood Count 6.6 x10^3/uL (4.0-11.0) Red Blood Count 4.30 x10^6/uL (3.50-5.40) Hemoglobin 11.5 g/dL (12.0-15.5) Hematocrit 35.8 % (36.0-47.0) Mean Corpuscular Volume 83 fL (79-100) Mean Corpuscular Hemoglobin 27 pg (25-35) Mean Corpuscular Hemoglobin Concent 32 g/dL (31-37) Red Cell Distribution Width 16.3 % (11.5-14.5) Platelet Count 291 x10^3/uL (140-400) Neutrophils (%) (Auto) 47 % (31-73) Lymphocytes (%) (Auto) 43 % (24-48) Monocytes (%) (Auto) 7 % (0-9) Eosinophils (%) (Auto) 3 % (0-3) Basophils (%) (Auto) 0 % (0-3) Neutrophils # (Auto) 3.1 x10^3uL (1.8-7.7) Lymphocytes # (Auto) 2.9 x10^3/uL (1.0-4.8) Monocytes # (Auto) 0.4 x10^3/uL (0.0-1.1) Eosinophils # (Auto) 0.2 x10^3/uL (0.0-0.7) Basophils # (Auto) 0.0 x10^3/uL (0.0-0.2) Sodium Level 143 mmol/L (136-145) Potassium Level 3.4 mmol/L (3.5-5.1) Chloride Level 107 mmol/L (98-107) Carbon Dioxide Level 30 mmol/L (21-32) Anion Gap 6 (6-14) Blood Urea Nitrogen 10 mg/dL (7-20) Creatinine 0.7 mg/dL (0.6-1.0) Estimated GFR (Cockcroft-Gault) 107.2 Glucose Level 90 mg/dL (70-99) Calcium Level 8.0 mg/dL (8.5-10.1) Medications Current Medications Ceftriaxone Sodium 50 ml @ 100 mls/hr 1X ONCE IV ; Start 01/17/18 at 11:15; Stop 01/17/18 at 11:21; Status DC Ondansetron HCl (Zofran) 4 mg PRN Q8HRS PRN IV NAUSEA/VOMITING; Start 01/17/18 at 11:30; Stop 01/18/18 at 11:29 Morphine Sulfate (Morphine Sulfate) 2 mg PRN Q2HR PRN IV PAIN; Start 01/17/18 at 11:30; Stop 01/18/18 at 11:29 Sodium Chloride 1,000 ml @ 75 mls/hr [id number] IV Last administered on at 09:14; Start 01/17/18 at 11:30; Stop 01/18/18 at 11:29 Vancomycin HCl (Vanco Per Pharmacy) 1 each PRN DAILY PRN MC SEE COMMENTS Last administered on 01/17/18at 16:37; Start 01/17/18 at 11:30 Vancomycin HCl 2 gm/Sodium Chloride 500 ml @ 250 mls/hr 1X ONCE IV Last administered on 01/17/18at 11:54; Start 01/17/18 at 11:30; Stop 01/17/18 at 13:29 ; Status DC Aspirin (Children'S Aspirin) 81 mg [id number] PO Last administered on 09:05; Start 01/17/18 at 14:30 Baclofen (Lioresal) 10 mg TID PO Last administered on 01/18/18 09:05; Start at 14:00 Ferrous Sulfate (Feosol) 325 mg TIDWMEALS PO Last administered on 01/18/18 09: 05; Start 01/17/18 at 17:00 Fluticasone Propionate (Flonase) 2 spray DAILY NS Last administered on 09:06; Start 01/17/18 at 14:30 Gabapentin (Neurontin) 100 mg BID PO ; Start 01/17/18 at 14:30; Status Cancel Cetirizine HCl (ZyrTEC) 10 mg DAILY PO Last administered on 01/18/18 09:05; Start 01/17/18 at 14:30 Multivitamins (Thera M Plus) 1 tab DAILY PO Last administered on 01/18/18 09: 05; Start 01/17/18 at 14:30 Pregabalin (Lyrica) 150 mg BID PO Last administered on 01/18/18 09:05; Start 01/17/18 at 14:30 Sertraline HCl (Zoloft) 100 mg DAILY PO Last administered on 01/18/18 09:04; Start 01/17/18 at 14:30 Triamcinolone Acetonide (Kenalog) 1 jessica PRN BID PRN TP IRRITATED AREAS; Start 01/17/18 at 14:30 Acetaminophen (Tylenol) 650 mg PRN Q6HRS PRN PO FEVER; Start 01/17/18 at 14:00 Ondansetron HCl (Zofran) 4 mg PRN Q6HRS PRN IV NAUSEA/VOMITING 1ST CHOICE; Start 01/17/18 at 14:00 Morphine Sulfate (Morphine Sulfate) 2 mg PRN Q2HR PRN IV MODERATE TO SEVERE PAIN; Start 01/17/18 at 14:00 Tramadol HCl (Ultram) 50 mg PRN Q6HRS PRN PO MILD TO MODERATE PAIN Last administered on 01/17/18at 20:42; Start 01/17/18 at 14:00 Docusate Sodium (Colace) 100 mg PRN DAILY PRN PO HARD STOOLS; Start 01/17/18 at 14:00 Acetaminophen/ Hydrocodone Bitart (Lortab 5/325) 1 tab PRN Q4HRS PRN PO PAIN MILD TO MODERATE Last administered on 01/18/18at 09:06; Start 01/17/18 at 14:00 Enoxaparin Sodium (Lovenox 40mg Syringe) 40 mg Q12HR SQ Last administered on at 09:06; Start 01/17/18 at 14:30 Vancomycin HCl 1.5 gm/Sodium Chloride 500 ml @ 250 mls/hr Q12H IV Last administered on 01/18/18at 00:40; Start 01/18/18 at 00:00 Vancomycin HCl (Vancomycin Trough Level) 1 each 1X ONCE MC ; Start 01/18/18 at 23:30; Stop 01/18/18 at 23:31 Potassium Chloride (Klor-Con) 40 meq 1X ONCE PO Last administered on at 09:05; Start 01/18/18 at 09:00; Stop 01/18/18 at 09:01; Status DC Active Scripts Active Keflex (Cephalexin) 250 Mg Capsule 1 Cap PO QID Vancomycin Hcl 500 Mg Vial 125 Mg PO [id number] Days [Fluconazole] 100 MG Tablet 200 Mg PO DAILY 5 Days Cefpodoxime Proxetil 100 Mg Tablet 200 Mg PO BID 7 Days Children's Aspirin (Aspirin) 81 Mg Tab.chew 81 Mg PO [id number] 30 Days [hctz] 12.5 Mg PO DAILY Reported Hydrochlorothiazide Tablet (Hydrochlorothiazide) 12.5 Mg Tablet 1 Tab PO DAILY Baclofen 10 Mg Tablet 1 Tab PO TID Guaiasorb Dm Liquid (Guaifenesin/Dextromethorphan) 118 Ml Liquid 118 Ml PO Lyrica (Pregabalin) 150 Mg Capsule 150 Mg PO BID 30 Days Ibuprofen 800 Mg Tablet 800 Mg PO TIDAFTMEAL PRN PRN Ferrous Sulfate 325 Mg Tablet 325 Mg PO TID Cerovite Advanced Form Tab (Multivitamin/Iron/Folic Acid) 1 Each Tablet 1 Each PO DAILY Calcium Carbonate 600 Mg Tablet 600 Mg PO DAILY Triamcinolone Acetonide 0.5% Cream (Triamcinolone Acetonide) 15 Gm Cream..g. 1 Jessica TP BID Tylenol Extra Strength (Acetaminophen) 500 Mg Tablet 500 Mg PO PRN QID PRN Vitamin D3 (Cholecalciferol (Vitamin D3)) 1,000 Unit Capsule 1,000 Unit PO Sertraline Hcl 100 Mg Tablet 100 Mg PO DAILY Loratadine 10 Mg Tablet 1 Tab PO DAILY Gabapentin 100 Mg Capsule 100 Mg PO BID Fluticasone Propionate Nasal [place] (Fluticasone Propionate) 16 Gm [place].susp 2 [place] NS DAILY Vitals/I & O Vital Sign - Last 24 Hours 01/17/18 01/17/18 01/17/18 01/17/18 10:25 11:11 11:41 13:30 Temp 98.6 98.7 98.6 98.7 Pulse 71 69 68 67 Resp 24 22 24 B/P (MAP) 143/84 (103) 179/92 (121) 152/90 (110) 138/79 (98) Pulse Ox 96 95 94 97 O2 Delivery Room Air Room Air Room Air Room Air 01/17/18 01/17/18 01/17/18 01/17/18 13:47 15:00 18:30 19:00 Temp 98.5 99.1 98.5 99.1 Pulse 85 62 Resp 16 17 B/P (MAP) 110/72 (85) 104/64 (77) Pulse Ox 98 93 O2 Delivery Room Air Room Air Room Air Room Air 01/17/18 01/17/18 01/17/18 01/18/18 20:00 20:42 22:56 02:50 Temp 97.8 98.4 97.8 98.4 Pulse 91 65 Resp 18 18 B/P (MAP) 104/73 (83) 107/63 (78) Pulse Ox 92 96 O2 Delivery Room Air Room Air Room Air Room Air 01/18/18 01/18/18 07:00 09:06 Temp 98.8 98.8 Pulse 71 Resp 18 18 B/P (MAP) 132/82 (99) Pulse Ox 91 96 O2 Delivery Room Air Room Air Intake and Output 01/17/18 01/17/18 01/18/18 15:00 23:00 07:00 Intake Total 200 ml 150 ml Balance 200 ml 150 ml MARY JANE PERRIN MD Jan 18, 2018 10:01
[2018-01-18 11:00] VITALS: BP 122/77
--- NOTE | 2018-01-18 12:24 | PDOC ---
Infectious Disease Note Vital Sign Vital Signs Vital Signs Date Time Temp Pulse Resp B/P (MAP) Pulse Ox O2 Delivery O2 Flow Rate FiO2 01/18/18 10:05 18 96 Room Air 01/18/18 07:00 98.8 71 132/82 (99) 98.8 Labs Lab Laboratory Tests Test 01/17/18 13:23 01/17/18 16:36 01/17/18 20:24 01/18/18 03:40 Glucose (Fingerstick) 74 mg/dL (70-99) 147 mg/dL (70-99) 99 mg/dL (70-99) White Blood Count 6.6 x10^3/uL (4.0-11.0) Red Blood Count 4.30 x10^6/uL (3.50-5.40) Hemoglobin 11.5 g/dL (12.0-15.5) Hematocrit 35.8 % (36.0-47.0) Mean Corpuscular Volume 83 fL (79-100) Mean Corpuscular Hemoglobin 27 pg (25-35) Mean Corpuscular Hemoglobin Concent 32 g/dL (31-37) Red Cell Distribution Width 16.3 % (11.5-14.5) Platelet Count 291 x10^3/uL (140-400) Neutrophils (%) (Auto) 47 % (31-73) Lymphocytes (%) (Auto) 43 % (24-48) Monocytes (%) (Auto) 7 % (0-9) Eosinophils (%) (Auto) 3 % (0-3) Basophils (%) (Auto) 0 % (0-3) Neutrophils # (Auto) 3.1 x10^3uL (1.8-7.7) Lymphocytes # (Auto) 2.9 x10^3/uL (1.0-4.8) Monocytes # (Auto) 0.4 x10^3/uL (0.0-1.1) Eosinophils # (Auto) 0.2 x10^3/uL (0.0-0.7) Basophils # (Auto) 0.0 x10^3/uL (0.0-0.2) Sodium Level 143 mmol/L (136-145) Potassium Level 3.4 mmol/L (3.5-5.1) Chloride Level 107 mmol/L (98-107) Carbon Dioxide Level 30 mmol/L (21-32) Anion Gap 6 (6-14) Blood Urea Nitrogen 10 mg/dL (7-20) Creatinine 0.7 mg/dL (0.6-1.0) Estimated GFR (Cockcroft-Gault) 107.2 Glucose Level 90 mg/dL (70-99) Calcium Level 8.0 mg/dL (8.5-10.1) Objective Assessment RLE cellulitis is improving -Failed OP Rocephin and Keflex. Small right lower leg wound injury - healing Cerebral palsy Morbid obesity Plan Plan of Care vanc, wean soon Monitor renal function Local wound care D/w RN Thank you [id number] Attending Co-Sign The patient was seen and interviewed as well as examined at the bedside. The chart was reviewed. The case was discussed. Agree with the plan of care. SCOTTIE ECHEVARRIA APRN Jan 18, 2018 12:24 ADDISON REEVES MD Jan 18, 2018 15:48
[2018-01-18] MEDS: VANCOMYCIN PER PHARMACY MC PRN (13:45)
[2018-01-18 15:00] VITALS: BP 140/63
[2018-01-18] MEDS: LACTOBACILLUS RHAMNOSUS GG 1 CAPSULE. PO SCH ×2 (15:27→20:36)
[2018-01-18] MEDS: CEPHALEXIN 250 MG CAPSULE. PO SCH ×2 (17:09→20:36)
--- NOTE | 2018-01-18 18:54 | CONS ---
DATE OF CONSULTATION: 01/18/2018 REQUESTING PHYSICIAN: Dr. Carias. REASON FOR CONSULTATION: Leg cellulitis. HISTORY OF PRESENT ILLNESS: This patient is a 52-year-old female with cerebral palsy and cognitive dysfunction, who was transferring to her wheelchair when her right leg got nicked/cut on a wheelchair. She then developed redness, swelling, pain and drainage of the area. She was seen at an urgent care center and treated with a dose of Rocephin and Keflex. However, the symptoms persisted and has since been admitted. She remains afebrile with a normal white blood cell count. An ultrasound showed moderate diffuse subcutaneous edema. No discrete fluid collection or mass. She is dosed with vancomycin. PAST MEDICAL HISTORY: Cerebral palsy with cognitive dysfunction. Hypertension. Previous history of cellulitis of right lower extremity, responsive to IV antibiotics in 10/2017. History of seizures, cerebrovascular accident with right-sided hemiparesis, obesity, arthritis, carpal tunnel syndrome, prediabetes, depression. PAST SURGICAL HISTORY: Right total hip replacement. FAMILY HISTORY: Positive for diabetes, coronary artery disease, and hypertension. SOCIAL HISTORY: The patient lives in a fdc. ALLERGIES: CARISSA INHIBITORS, AMPHETAMINE, DEXTROAMPHETAMINE, LISINOPRIL AND ZIPRASIDONE. MEDICATIONS: Vancomycin. Other medications are available and have been reviewed on the JUL. REVIEW OF SYSTEMS: The patient says her right leg is feeling better. She is most bothered with some discomfort of her left hand. She denies injury. She had some diarrhea on admission that is settling down. A C. diff PCR has been ordered. She has a history of C. diff in 10/2017. Repeat testing has been ordered. She denies upset stomach. Denies shortness of air. PHYSICAL EXAMINATION: GENERAL: The patient is propped up in bed, alert, appears comfortable. VITAL SIGNS: Temperature is 98.8, blood pressure 132/82, heart rate 71, respiratory rate 18, pulse oximetry 96% on room air. BMI 40. HEENT: Oral cavity clear. LUNGS: Clear to auscultation. HEART: S1 and S2. ABDOMEN: Obese, bowel sounds active, soft, nontender. EXTREMITIES: Right lower extremity is slightly edematous. She has a small wound about her ankle appears to be healing. No redness or drainage. Other extremities unremarkable. SKIN: Warm without rash. NEUROLOGIC: Alert, answers simple questions appropriately. LABORATORY DATA: WBC 6.6, hemoglobin 11.5, platelet count 291,000. Creatinine 0.7, BUN 10, sodium 143, potassium 3.4, glucose 90. Ultrasound of right lower extremity per HPI. C. diff PCR pending. ASSESSMENT: 1. Right lower extremity cellulitis, improving. 2. Small right lower leg wound injury, healing. 3. Cerebral palsy. 4. Morbid obesity. PLAN: Continue the vancomycin. Monitor renal function closely. Local wound care. Discussed with RN. Thank you, Dr. Carias for asking us to participate in this patient's care. Should you have further questions or concerns, please call. ADDISON REEVES MD DR: SUNDAY/juan JOB#: [id number] / [id number]
[2018-01-18 19:00] VITALS: BP 121/76
[2018-01-18 22:50] VITALS: BP 115/74
[2018-01-19 02:44] VITALS: BP 144/80
[2018-01-19 06:00] LABS: CREATININE 0.6 mg/dL (0.6-1.0)
[2018-01-19 07:00] VITALS: BP 121/73
--- NOTE | 2018-01-19 07:42 | PDOC ---
Infectious Disease Note Subjective Subjective says she is ok ROS ROS no n/v/d/sob Vital Sign Vital Signs Vital Signs Date Time Temp Pulse Resp B/P (MAP) Pulse Ox O2 Delivery O2 Flow Rate FiO2 01/19/18 02:44 97.4 64 18 144/80 (101) 93 Room Air 97.4 Physical Exam PHYSICAL EXAM GENERAL: The patient is propped up in bed, alert, appears comfortable. VITAL SIGNS: Temperature is 98.8, blood pressure 132/82, heart rate 71, respiratory rate 18, pulse oximetry 96% on room air. BMI 40. HEENT: Oral cavity clear. LUNGS: Clear to auscultation. HEART: S1 and S2. ABDOMEN: Obese, bowel sounds active, soft, nontender. EXTREMITIES: Right lower extremity is slightly edematous. She has a small wound about her ankle appears to be healing. No redness or drainage. Other extremities unremarkable. SKIN: Warm without rash. NEUROLOGIC: Alert, answers simple questions appropriately. Labs Lab Laboratory Tests Test 01/18/18 12:33 01/18/18 16:47 01/18/18 20:02 01/19/18 04:20 Glucose (Fingerstick) 118 mg/dL (70-99) 103 mg/dL (70-99) 107 mg/dL (70-99) Creatinine 0.6 mg/dL (0.6-1.0) Estimated GFR (Cockcroft-Gault) 128.0 Objective Assessment 1. Right lower extremity cellulitis, improving. 2. Small right lower leg wound injury, healing. 3. Cerebral palsy. 4. Morbid obesity. Plan Plan of Care keflex Monitor renal function Local wound care D/w ADDISON SAUNDERS MD Jan 19, 2018 07:42
[2018-01-19] MEDS: BACLOFEN 10 MG TABLET. PO SCH ×3 (08:36→20:27)
[2018-01-19] MEDS: FLUTICASONE 50MCG/NASAL SPRAY 16GM BOTTLE. NS SCH (08:36)
[2018-01-19] MEDS: LACTOBACILLUS RHAMNOSUS GG 1 CAPSULE. PO SCH ×2 (08:36→20:27)
[2018-01-19] MEDS: FERROUS SULFATE 325 MG TABLET. PO SCH ×3 (08:36→17:24)
[2018-01-19] MEDS: ASPIRIN CHEWABLE 81 MG TABLET. PO SCH (08:37)
[2018-01-19] MEDS: CEPHALEXIN 250 MG CAPSULE. PO SCH ×4 (08:37→20:27)
[2018-01-19] MEDS: SERTRALINE 50 MG TABLET. PO SCH (08:37)
[2018-01-19] MEDS: PREGABALIN 75 MG CAPSULE PO SCH ×2 (08:37→20:27)
[2018-01-19] MEDS: CETIRIZINE HCL 10 MG TABLET. PO SCH (08:38)
[2018-01-19] MEDS: ENOXAPARIN 40 MG/0.4 ML SYRINGE. SQ SCH ×2 (08:38→20:26)
[2018-01-19] MEDS: MULTIVITAMIN with MINERAL TABLET. PO SCH (10:50)
--- NOTE | 2018-01-19 11:23 | PDOC3 ---
Discharge Summary Visit Information Date of Admission: Jan 17, 2018 Date of Discharge: Jan 19, 2018 Admitting Diagnosis Comment: rt leg cellulitits h/o cdiff HTN cerebral palsy, wheel chair bound morbid obesity Final Diagnosis Problems Medical Problems: (1) Cellulitis of right leg Status: Acute Brief Hospital Course Allergies Allergies Coded Allergies Type Severity Reaction Last Updated Verified CARISSA Inhibitors Allergy Intermediate Edema 01/17/18 Yes amphetamine Allergy Intermediate Edema 01/17/18 Yes dextroamphetamine Allergy Intermediate Edema 01/17/18 Yes lisinopril Allergy Intermediate Edema 01/17/18 Yes ziprasidone Allergy Intermediate Edema 01/17/18 Yes Vital Signs Vital Signs Date Time Temp Pulse Resp B/P (MAP) Pulse Ox O2 Delivery O2 Flow Rate FiO2 01/19/18 07:00 98.6 71 16 121/73 (89) 96 Room Air 98.6 Lab Results Laboratory Tests Test 01/17/18 11:35 01/17/18 13:23 01/17/18 16:36 01/17/18 20:24 White Blood Count 6.6 x10^3/uL (4.0-11.0) Red Blood Count 4.76 x10^6/uL (3.50-5.40) Hemoglobin 12.7 g/dL (12.0-15.5) Hematocrit 38.9 % (36.0-47.0) Mean Corpuscular Volume 82 fL (79-100) Mean Corpuscular Hemoglobin 27 pg (25-35) Mean Corpuscular Hemoglobin Concent 33 g/dL (31-37) Red Cell Distribution Width 16.5 % (11.5-14.5) Platelet Count 341 x10^3/uL (140-400) Neutrophils (%) (Auto) 43 % (31-73) Lymphocytes (%) (Auto) 42 % (24-48) Monocytes (%) (Auto) 10 % (0-9) Eosinophils (%) (Auto) 3 % (0-3) Basophils (%) (Auto) 2 % (0-3) Neutrophils # (Auto) 2.8 x10^3uL (1.8-7.7) Lymphocytes # (Auto) 2.8 x10^3/uL (1.0-4.8) Monocytes # (Auto) 0.6 x10^3/uL (0.0-1.1) Eosinophils # (Auto) 0.2 x10^3/uL (0.0-0.7) Basophils # (Auto) 0.1 x10^3/uL (0.0-0.2) Sodium Level 137 mmol/L (136-145) Potassium Level 3.8 mmol/L (3.5-5.1) Chloride Level 103 mmol/L (98-107) Carbon Dioxide Level 30 mmol/L (21-32) Anion Gap 4 (6-14) Blood Urea Nitrogen 11 mg/dL (7-20) Creatinine 0.6 mg/dL (0.6-1.0) Estimated GFR (Cockcroft-Gault) 128.0 Glucose Level 82 mg/dL (70-99) Calcium Level 9.8 mg/dL (8.5-10.1) Glucose (Fingerstick) 74 mg/dL (70-99) 147 mg/dL (70-99) 99 mg/dL (70-99) Test 01/18/18 03:40 01/18/18 12:33 01/18/18 16:47 01/18/18 20:02 White Blood Count 6.6 x10^3/uL (4.0-11.0) Red Blood Count 4.30 x10^6/uL (3.50-5.40) Hemoglobin 11.5 g/dL (12.0-15.5) Hematocrit 35.8 % (36.0-47.0) Mean Corpuscular Volume 83 fL (79-100) Mean Corpuscular Hemoglobin 27 pg (25-35) Mean Corpuscular Hemoglobin Concent 32 g/dL (31-37) Red Cell Distribution Width 16.3 % (11.5-14.5) Platelet Count 291 x10^3/uL (140-400) Neutrophils (%) (Auto) 47 % (31-73) Lymphocytes (%) (Auto) 43 % (24-48) Monocytes (%) (Auto) 7 % (0-9) Eosinophils (%) (Auto) 3 % (0-3) Basophils (%) (Auto) 0 % (0-3) Neutrophils # (Auto) 3.1 x10^3uL (1.8-7.7) Lymphocytes # (Auto) 2.9 x10^3/uL (1.0-4.8) Monocytes # (Auto) 0.4 x10^3/uL (0.0-1.1) Eosinophils # (Auto) 0.2 x10^3/uL (0.0-0.7) Basophils # (Auto) 0.0 x10^3/uL (0.0-0.2) Sodium Level 143 mmol/L (136-145) Potassium Level 3.4 mmol/L (3.5-5.1) Chloride Level 107 mmol/L (98-107) Carbon Dioxide Level 30 mmol/L (21-32) Anion Gap 6 (6-14) Blood Urea Nitrogen 10 mg/dL (7-20) Creatinine 0.7 mg/dL (0.6-1.0) Estimated GFR (Cockcroft-Gault) 107.2 Glucose Level 90 mg/dL (70-99) Calcium Level 8.0 mg/dL (8.5-10.1) Glucose (Fingerstick) 118 mg/dL (70-99) 103 mg/dL (70-99) 107 mg/dL (70-99) Test 01/19/18 04:20 01/19/18 07:44 01/19/18 11:00 Creatinine 0.6 mg/dL (0.6-1.0) Estimated GFR (Cockcroft-Gault) 128.0 Glucose (Fingerstick) 92 mg/dL (70-99) 104 mg/dL (70-99) Laboratory Tests Test 01/18/18 12:33 01/18/18 16:47 01/18/18 20:02 01/19/18 04:20 Glucose (Fingerstick) 118 mg/dL (70-99) 103 mg/dL (70-99) 107 mg/dL (70-99) Creatinine 0.6 mg/dL (0.6-1.0) Estimated GFR (Cockcroft-Gault) 128.0 Test 01/19/18 07:44 01/19/18 11:00 Glucose (Fingerstick) 92 mg/dL (70-99) 104 mg/dL (70-99) Brief Hospital Course Ms. Olmedo is a 52 old AA female who is wheelchair bound mostly, has incapacitating cerebral palsy, admitted for right leg cellulitis, comanage with ID. By day 2 the redness is gone. There is no abscess or anything like that. Able to go home on by mouth Keflex. Nontoxic appearing, no white count, afebrile on discharge. No new home medications except for antibiotics Consults performed by ID Procedure performed none Time for discharge less than 30 minutes, paperwork done Discussed with RN, patient seen and examined Discharge Information Condition at Discharge: Improved, Stable Disposition/Orders: D/C to Home w/ HH Scheduled Aspirin (Children's Aspirin) 81 Mg Tab.chew, 81 MG PO DAILYWBKFT for 30 Days Prescribed by: LORRIE MARTIN MD on 03/02/16 1636 Last Action: Continued on 01/17/18 135 by MCKENZIE VALVERDE MD Baclofen (Baclofen) 10 Mg Tablet, 1 TAB PO TID, #90 Ref 2 (Reported) Entered as Reported by: FLOWER SPRINGER on 02/05/17 1339 Last Action: Continued on 01/17/18 135 by MCKENZIE VALVERDE MD Calcium Carbonate (Calcium Carbonate) 600 Mg Tablet, 600 MG PO DAILY, (Reported) Entered as Reported by: JEANNE OROZCO on 12/17/14 0917 Last Action: HELD on 01/17/181355 by MCKENZIE VALVERDE MD Cefpodoxime Proxetil (Cefpodoxime Proxetil) 100 Mg Tablet, 200 MG PO BID for 7 Days, #28 Prescribed by: MARY JANE PERRIN on 10/31/17 0814 Last Action: HELD on 01/17/18 135 by MCKENZIE VALVERDE MD Cephalexin (Keflex) 250 Mg Capsule, 1 CAP PO QID, #28 Prescribed by: ANTONIA BRADLEY on 01/17/18 1106 Last Action: HELD on 01/17/18 135 by MCKENZIE VALVERDE MD Ferrous Sulfate (Ferrous Sulfate) 325 Mg Tablet, 325 MG PO TID, (Reported) Entered as Reported by: KD MCMULLEN on 09/18/16 1340 Last Action: Continued on 01/17/181355 by MCKENZIE VALVERDE MD Fluticasone Propionate (Fluticasone Propionate Nasal [place]) 16 Gm [place].susp, 2 SPRAY NS DAILY, #1 Ref 11 (Reported) Entered as Reported by: JEANNE OROZCO on 12/17/14916 Last Action: Continued on 01/17/18 1355 by MCKENZIE VALVERDE MD Gabapentin (Gabapentin) 100 Mg Capsule, 100 MG PO BID, (Reported) Entered as Reported by: JEANNE OROZCO on 12/17/14916 Last Action: Continued on 01/17/181355 by MCKENZIE VALVERDE MD Hydrochlorothiazide (Hydrochlorothiazide Tablet) 12.5 Mg Tablet, 1 TAB PO DAILY , #30 Ref 5 (Reported) Entered as Reported by: FLOWER SPRINGER on 02/05/17 1341 Last Action: HELD on 01/17/181355 by MCKENZIE VALVERDE MD Loratadine (Loratadine) 10 Mg Tablet, 1 TAB PO DAILY, #30 Ref 5 (Reported) Entered as Reported by: JEANNE OROZCO on 12/17/14916 Last Action: Converted on 01/17/181355 by MCKENZIE VALVERDE MD Multivitamin/Iron/Folic Acid (Cerovite Advanced Form Tab) 1 Each Tablet, 1 EACH PO DAILY, (Reported) Entered as Reported by: JEANNE OROZCO on 12/17/14916 Last Action: Converted on 01/17/181355 by MCKENZIE VALVERDE MD Pregabalin (Lyrica) 150 Mg Capsule, 150 MG PO BID for 30 Days, (Reported) Entered as Reported by: KD MCMULLEN on 09/18/16 1344 Last Action: Converted on 01/17/181355 by MCKENZIE VALVERDE MD Sertraline Hcl (Sertraline Hcl) 100 Mg Tablet, 100 MG PO DAILY for ANTI- DEPRESSANT, Ref 0 (Reported) Entered as Reported by: JEANNE OROZCO on 12/17/14916 Last Action: Converted on 01/17/181355 by MCKENZIE VALVERDE MD Triamcinolone Acetonide (Triamcinolone Acetonide 0.5% Cream) 15 Gm Cream..g., 1 ANDREA TP BID, #15 Ref 1 (Reported) Entered as Reported by: JEANNE OROZCO on 12/17/14916 Last Action: Converted on 01/17/181355 by MCKENZIE VALVERDE MD Vancomycin Hcl (Vancomycin Hcl) 500 Mg Vial, 125 MG PO [id number] for 14 Days, #12 Prescribed by: MARY JANE PERRIN on 11/11/17 1037 Last Action: HELD on 01/17/181355 by MCKENZIE VALVERDE MD [Fluconazole] 100 MG TABLET, 200 MG PO DAILY for 5 Days, #10 Prescribed by: MARY JANE PERRIN on 10/31/17 0814 Last Action: HELD on 01/17/181355 by MCKENZIE VALVERDE MD [hctz] , 12.5 MG PO DAILY, #30 Prescribed by: TERRY BOUCHER on 12/18/14 1142 Last Action: HELD on 01/17/181355 by MCKENZIE VALVERDE MD Scheduled PRN Acetaminophen (Tylenol Extra Strength) 500 Mg Tablet, 500 MG PO PRN QID PRN for PAIN, (Reported) Entered as Reported by: JEANNE OROZCO on 12/17/14916 Last Action: HELD on 01/17/181355 by MCKENZIE VALVERDE MD Ibuprofen (Ibuprofen) 800 Mg Tablet, 800 MG PO TIDAFTMEAL PRN PRN for INFLAMMATION, (Reported) Entered as Reported by: KD MCMULLEN on 09/18/16 134 Last Action: HELD on 01/17/181355 by MCKENZIE VALVERDE MD Miscellaneous Medications Cholecalciferol (Vitamin D3) (Vitamin D3) 1,000 Unit Capsule, 1,000 UNIT PO, ( Reported) Entered as Reported by: JEANNE OROZCO on 12/17/14916 Last Action: HELD on 01/17/181355 by MCKENZIE VALVERDE MD Guaifenesin/Dextromethorphan (Guaiasorb Dm Liquid) 118 Ml Liquid, 118 ML PO, ( Reported) Entered as Reported by: KD MCMULLEN on 09/18/16 1345 Last Action: HELD on 01/17/181355 by MD MARYCHUY MURRAY CHERRIE Y MD Jan 19, 2018 11:22
[2018-01-19 11:27] VITALS: BP 108/75
[2018-01-19 15:56] VITALS: BP 141/91
[2018-01-19 19:00] VITALS: BP 126/72
[2018-01-19 22:55] VITALS: BP 116/73
[2018-01-20 03:00] VITALS: BP 146/81
[2018-01-20 04:00] LABS: CREATININE 0.6 mg/dL (0.6-1.0)
[2018-01-20 07:00] VITALS: BP 133/83
[2018-01-20] MEDS: ASPIRIN CHEWABLE 81 MG TABLET. PO SCH (08:42)
[2018-01-20] MEDS: HYDROcodone/APAP 5/325MG 1 TAB TABLET PO PRN (08:42)
[2018-01-20] MEDS: BACLOFEN 10 MG TABLET. PO SCH ×2 (08:42→12:46)
[2018-01-20] MEDS: CETIRIZINE HCL 10 MG TABLET. PO SCH (08:42)
[2018-01-20] MEDS: CEPHALEXIN 250 MG CAPSULE. PO SCH ×2 (08:43→12:46)
[2018-01-20] MEDS: FERROUS SULFATE 325 MG TABLET. PO SCH ×2 (08:43→12:46)
[2018-01-20] MEDS: PREGABALIN 75 MG CAPSULE PO SCH (08:43)
[2018-01-20] MEDS: MULTIVITAMIN with MINERAL TABLET. PO SCH (08:43)
[2018-01-20] MEDS: SERTRALINE 50 MG TABLET. PO SCH (08:43)
[2018-01-20] MEDS: LACTOBACILLUS RHAMNOSUS GG 1 CAPSULE. PO SCH (08:43)
[2018-01-20] MEDS: ENOXAPARIN 40 MG/0.4 ML SYRINGE. SQ SCH (08:44)
[2018-01-20] MEDS: FLUTICASONE 50MCG/NASAL SPRAY 16GM BOTTLE. NS SCH (08:44)
--- NOTE | 2018-01-20 10:05 | PDOC ---
PROGRESS NOTES Chief Complaint Chief Complaint rt leg cellulitits h/o cdiff HTN cerebral palsy, wheel chair bound morbid obesity left hand pain History of Present Illness History of Present Illness Right leg cellulitis actually looks better No midnight calls Afebrile Labs reviewed otherwise okay except for mild hypokalemia at 3.4 She complains of left arm pain to me again today Plan: check left hand xray prior to dc Otherwise, if neg can dc today to senior living, MAR done, dc summ done martha Flores Vitals Vitals Vital Signs Date Time Temp Pulse Resp B/P (MAP) Pulse Ox O2 Delivery O2 Flow Rate FiO2 01/20/18 08:42 Room Air 01/20/18 07:00 97.9 60 18 133/83 (100) 94 97.9 Physical Exam Physical Exam GENERAL: The patient is propped up in bed, alert, appears comfortable. VITAL SIGNS: Temperature is 98.8, blood pressure 132/82, heart rate 71, respiratory rate 18, pulse oximetry 96% on room air. BMI 40. HEENT: Oral cavity clear. LUNGS: Clear to auscultation. HEART: S1 and S2. ABDOMEN: Obese, bowel sounds active, soft, nontender. EXTREMITIES: Right lower extremity is slightly edematous. She has a small wound about her ankle appears to be healing. No redness or drainage. Other extremities unremarkable. SKIN: Warm without rash. NEUROLOGIC: Alert, answers simple questions appropriately. General: Alert, Oriented X3, Cooperative, No acute distress Heart: Regular rate, Normal S1 Lungs: Clear Abdomen: Normal bowel sounds, Soft Extremities: No clubbing, No cyanosis Skin: No rashes, No breakdown Labs LABS Laboratory Tests Test 01/19/18 11:00 01/19/18 16:27 01/19/18 20:24 01/20/18 03:15 Glucose (Fingerstick) 104 mg/dL (70-99) 103 mg/dL (70-99) 131 mg/dL (70-99) Creatinine 0.6 mg/dL (0.6-1.0) Estimated GFR (Cockcroft-Gault) 128.0 Test 01/20/18 07:48 Glucose (Fingerstick) 93 mg/dL (70-99) Review of Systems Review of Systems Left hand pain otherwise -14 point Assessment and Plan Assessmemt and Plan Problems Medical Problems: (1) Cellulitis of right leg Status: Acute Comment Review of Relevant I have reviewed the following items sarah (where applicable) has been applied. Labs Laboratory Tests Test 01/18/18 12:33 01/18/18 16:47 01/18/18 20:02 01/18/18 21:00 Glucose (Fingerstick) 118 mg/dL (70-99) 103 mg/dL (70-99) 107 mg/dL (70-99) Nasal Screen MRSA (PCR) Negative (Negative) Test 01/19/18 04:20 01/19/18 07:44 01/19/18 11:00 01/19/18 16:27 Creatinine 0.6 mg/dL (0.6-1.0) Estimated GFR (Cockcroft-Gault) 128.0 Glucose (Fingerstick) 92 mg/dL (70-99) 104 mg/dL (70-99) 103 mg/dL (70-99) Test 01/19/18 20:24 01/20/18 03:15 01/20/18 07:48 Glucose (Fingerstick) 131 mg/dL (70-99) 93 mg/dL (70-99) Creatinine 0.6 mg/dL (0.6-1.0) Estimated GFR (Cockcroft-Gault) 128.0 Laboratory Tests Test 01/19/18 11:00 01/19/18 16:27 01/19/18 20:24 01/20/18 03:15 Glucose (Fingerstick) 104 mg/dL (70-99) 103 mg/dL (70-99) 131 mg/dL (70-99) Creatinine 0.6 mg/dL (0.6-1.0) Estimated GFR (Cockcroft-Gault) 128.0 Test 01/20/18 07:48 Glucose (Fingerstick) 93 mg/dL (70-99) Medications Current Medications Ceftriaxone Sodium 50 ml @ 100 mls/hr 1X ONCE IV ; Start 01/17/18 at 11:15; Stop 01/17/18 at 11:21; Status DC Ondansetron HCl (Zofran) 4 mg PRN Q8HRS PRN IV NAUSEA/VOMITING; Start 01/17/18 at 11:30; Stop 01/18/18 at 11:29; Status DC Morphine Sulfate (Morphine Sulfate) 2 mg PRN Q2HR PRN IV PAIN; Start 01/17/18 at 11:30; Stop 01/18/18 at 11:29; Status DC Sodium Chloride 1,000 ml @ 75 mls/hr [id number] IV Last administered on at 09:14; Start 01/17/18 at 11:30; Stop 01/18/18 at 11:29; Status DC Vancomycin HCl (Vanco Per Pharmacy) 1 each PRN DAILY PRN MC SEE COMMENTS Last administered on 01/18/18at 13:45; Start 01/17/18 at 11:30; Stop 01/18/18 at 16:27 ; Status DC Vancomycin HCl 2 gm/Sodium Chloride 500 ml @ 250 mls/hr 1X ONCE IV Last administered on 01/17/18 11:54; Start 01/17/18 at 11:30; Stop 01/17/18 at 13:29 ; Status DC Aspirin (Children'S Aspirin) 81 mg DAILYWBKFT PO Last administered on 08:42; Start 01/17/18 at 14:30 Baclofen (Lioresal) 10 mg TID PO Last administered on 01/20/18 08:42; Start at 14:00 Ferrous Sulfate (Feosol) 325 mg TIDWMEALS PO Last administered on 01/20/18 08: 43; Start 01/17/18 at 17:00 Fluticasone Propionate (Flonase) 2 spray DAILY NS Last administered on 08:44; Start 01/17/18 at 14:30 Gabapentin (Neurontin) 100 mg BID PO ; Start 01/17/18 at 14:30; Status Cancel Cetirizine HCl (ZyrTEC) 10 mg DAILY PO Last administered on 01/20/18 08:42; Start 01/17/18 at 14:30 Multivitamins (Thera M Plus) 1 tab DAILY PO Last administered on 01/20/18 08: 43; Start 01/17/18 at 14:30 Pregabalin (Lyrica) 150 mg BID PO Last administered on 01/20/18 08:43; Start 01/17/18 at 14:30 Sertraline HCl (Zoloft) 100 mg DAILY PO Last administered on 8/27/18at 08:43; Start 01/17/18 at 14:30 Triamcinolone Acetonide (Kenalog) 1 jessica PRN BID PRN TP IRRITATED AREAS; Start 01/17/18 at 14:30 Acetaminophen (Tylenol) 650 mg PRN Q6HRS PRN PO FEVER; Start 01/17/18 at 14:00 Ondansetron HCl (Zofran) 4 mg PRN Q6HRS PRN IV NAUSEA/VOMITING 1ST CHOICE; Start 01/17/18 at 14:00 Morphine Sulfate (Morphine Sulfate) 2 mg PRN Q2HR PRN IV MODERATE TO SEVERE PAIN; Start 01/17/18 at 14:00 Tramadol HCl (Ultram) 50 mg PRN Q6HRS PRN PO MILD PAIN Last administered on at 20:42; Start 01/17/18 at 14:00 Docusate Sodium (Colace) 100 mg PRN DAILY PRN PO HARD STOOLS; Start 01/17/18 at 14:00 Acetaminophen/ Hydrocodone Bitart (Lortab 5/325) 1 tab PRN Q4HRS PRN PO MODERATE PAIN Last administered on 01/20/18at 08:42; Start 01/17/18 at 14:00 Enoxaparin Sodium (Lovenox 40mg Syringe) 40 mg Q12HR SQ Last administered on at 08:44; Start 01/17/18 at 14:30 Vancomycin HCl 1.5 gm/Sodium Chloride 500 ml @ 250 mls/hr Q12H IV Last administered on 01/18/18at 12:50; Start 01/18/18 at 00:00; Stop 01/18/18 at 16:27 ; Status DC Vancomycin HCl (Vancomycin Trough Level) 1 each 1X ONCE MC ; Start 01/18/18 at 23:30; Stop 01/18/18 at 23:30; Status DC Potassium Chloride (Klor-Con) 40 meq 1X ONCE PO Last administered on at 09:05; Start 01/18/18 at 09:00; Stop 01/18/18 at 09:01; Status DC Lactobacillus Rhamnosus (Culturelle) 1 cap BID PO Last administered on at 08:43; Start 01/18/18 at 15:00 Cephalexin HCl (Keflex) 500 mg QID PO Last administered on 01/20/18at 08:43; Start 01/18/18 at 17:00 Active Scripts Active Keflex (Cephalexin) 250 Mg Capsule 1 Cap PO QID Vancomycin Hcl 500 Mg Vial 125 Mg PO [id number] 14 Days [Fluconazole] 100 MG Tablet 200 Mg PO DAILY 5 Days Cefpodoxime Proxetil 100 Mg Tablet 200 Mg PO BID 7 Days Children's Aspirin (Aspirin) 81 Mg Tab.chew 81 Mg PO DAILYWBKFT 30 Days [hctz] 12.5 Mg PO DAILY Reported Hydrochlorothiazide Tablet (Hydrochlorothiazide) 12.5 Mg Tablet 1 Tab PO DAILY Baclofen 10 Mg Tablet 1 Tab PO TID Guaiasorb Dm Liquid (Guaifenesin/Dextromethorphan) 118 Ml Liquid 118 Ml PO Lyrica (Pregabalin) 150 Mg Capsule 150 Mg PO BID 30 Days Ibuprofen 800 Mg Tablet 800 Mg PO TIDAFTMEAL PRN PRN Ferrous Sulfate 325 Mg Tablet 325 Mg PO TID Cerovite Advanced Form Tab (Multivitamin/Iron/Folic Acid) 1 Each Tablet 1 Each PO DAILY Calcium Carbonate 600 Mg Tablet 600 Mg PO DAILY Triamcinolone Acetonide 0.5% Cream (Triamcinolone Acetonide) 15 Gm Cream..g. 1 Jessica TP BID Tylenol Extra Strength (Acetaminophen) 500 Mg Tablet 500 Mg PO PRN QID PRN Vitamin D3 (Cholecalciferol (Vitamin D3)) 1,000 Unit Capsule 1,000 Unit PO Sertraline Hcl 100 Mg Tablet 100 Mg PO DAILY Loratadine 10 Mg Tablet 1 Tab PO DAILY Gabapentin 100 Mg Capsule 100 Mg PO BID Fluticasone Propionate Nasal [place] (Fluticasone Propionate) 16 Gm [place].susp 2 [place] NS DAILY Vitals/I & O Vital Sign - Last 24 Hours 01/19/18 01/19/18 01/19/18 01/19/18 11:27 15:56 19:00 20:02 Temp 98.6 97.9 99.2 98.6 97.9 99.2 Pulse 74 67 74 Resp 16 16 18 B/P (MAP) 108/75 (86) 141/91 (108) 126/72 (90) Pulse Ox 95 92 94 O2 Delivery Room Air Room Air 01/19/18 01/20/18 01/20/18 01/20/18 22:55 03:00 07:00 08:42 Temp 98.6 97.6 97.9 98.6 97.6 97.9 Pulse 70 56 60 Resp 18 18 18 B/P (MAP) 116/73 (87) 146/81 (102) 133/83 (100) Pulse Ox 93 93 94 O2 Delivery Room Air Room Air Room Air Intake and Output 01/19/18 01/19/18 01/20/18 15:00 23:00 07:00 Intake Total 220 ml Balance 220 ml MARY JANE PERRIN MD Jan 20, 2018 10:05
[2018-01-20 11:00] VITALS: BP 130/78
--- NOTE | 2018-01-20 11:09 | PDOC ---
Infectious Disease Note Subjective: Subjective pt says she is ok ROS: ROS Negative except for above. Vital Signs: Vital Signs Vital Signs Date Time Temp Pulse Resp B/P (MAP) Pulse Ox O2 Delivery O2 Flow Rate FiO2 01/20/18 08:42 Room Air 01/20/18 07:00 97.9 60 18 133/83 (100) 94 97.9 Physical Exam: PHYSICAL EXAM GENERAL: The patient is propped up in bed, alert, appears comfortable. VITAL SIGNS: Temperature is 98.8, blood pressure 132/82, heart rate 71, respiratory rate 18, pulse oximetry 96% on room air. BMI 40. HEENT: Oral cavity clear. LUNGS: Clear to auscultation. HEART: S1 and S2. ABDOMEN: Obese, bowel sounds active, soft, nontender. EXTREMITIES: Right lower extremity is slightly edematous. She has a small wound about her ankle appears to be healing. No redness or drainage. Other extremities unremarkable. SKIN: Warm without rash. NEUROLOGIC: Alert, answers simple questions appropriately. Medications: Inpatient Meds: Current Medications Medications (Trade) Dose Ordered Sig/Law Start Time Stop Time Status Last Admin Dose Admin Acetaminophen (Tylenol) 650 mg PRN Q6HRS PRN 01/17/18 14:00 Acetaminophen/ Hydrocodone Bitart (Lortab 5/325) 1 tab PRN Q4HRS PRN 01/17/18 14:00 01/20/18 08:42 1 TAB Aspirin (Children'S Aspirin) 81 mg [id number] 01/17/18 14:30 01/20/18 08:42 81 MG Baclofen (Lioresal) 10 mg TID 01/17/18 14:00 01/20/18 08:42 10 MG Ceftriaxone Sodium 50 ml @ 100 mls/hr 1X ONCE 01/17/18 11:15 01/17/18 11:21 DC Cephalexin HCl (Keflex) 500 mg QID 01/18/18 17:00 01/20/18 08:43 500 MG Cetirizine HCl (ZyrTEC) 10 mg DAILY 01/17/18 14:30 01/20/18 08:42 10 MG Docusate Sodium (Colace) 100 mg PRN DAILY PRN 01/17/18 14:00 Enoxaparin Sodium (Lovenox 40mg Syringe) 40 mg Q12HR 01/17/18 14:30 01/20/18 08:44 40 MG Ferrous Sulfate (Feosol) 325 mg TIDWMEALS 01/17/18 17:00 01/20/18 08:43 325 MG Fluticasone Propionate (Flonase) 2 spray DAILY 01/17/18 14:30 01/20/18 08:44 2 SPRAY Gabapentin (Neurontin) 100 mg BID 01/17/18 14:30 Cancel Lactobacillus Rhamnosus (Culturelle) 1 cap BID 01/18/18 15:00 01/20/18 08:43 1 CAP Morphine Sulfate (Morphine Sulfate) 2 mg PRN Q2HR PRN 01/17/18 14:00 Multivitamins (Thera M Plus) 1 tab DAILY 01/17/18 14:30 01/20/18 08:43 1 TAB Ondansetron HCl (Zofran) 4 mg PRN Q6HRS PRN 01/17/18 14:00 Potassium Chloride (Klor-Con) 40 meq 1X ONCE 01/18/18 09:00 01/18/18 09:01 DC 01/18/18 09:05 40 MEQ Pregabalin (Lyrica) 150 mg BID 01/17/18 14:30 01/20/18 08:43 150 MG Sertraline HCl (Zoloft) 100 mg DAILY 01/17/18 14:30 01/20/18 08:43 100 MG Sodium Chloride 1,000 ml @ 75 mls/hr [id number] 01/17/18 11:30 01/18/18 11:29 DC 01/18/18 09:14 75 MLS/HR Tramadol HCl (Ultram) 50 mg PRN Q6HRS PRN 01/17/18 14:00 01/17/18 20:42 50 MG Triamcinolone Acetonide (Kenalog) 1 layton PRN BID PRN 01/17/18 14:30 Vancomycin HCl (Vanco Per Pharmacy) 1 each PRN DAILY PRN 01/17/18 11:30 01/18/18 16:27 DC 01/18/18 13:45 1 EACH Vancomycin HCl (Vancomycin Trough Level) 1 each 1X ONCE 01/18/18 23:30 01/18/18 23:30 DC Vancomycin HCl 1.5 gm/Sodium Chloride 500 ml @ 250 mls/hr Q12H 01/18/18 00:00 01/18/18 16:27 DC 01/18/18 12:50 250 MLS/HR Vancomycin HCl 2 gm/Sodium Chloride 500 ml @ 250 mls/hr 1X ONCE 01/17/18 11:30 01/17/18 13:29 DC 01/17/18 11:54 250 MLS/HR Labs: Lab Laboratory Tests Test 01/19/18 16:27 01/19/18 20:24 01/20/18 03:15 01/20/18 07:48 Glucose (Fingerstick) 103 mg/dL (70-99) 131 mg/dL (70-99) 93 mg/dL (70-99) Creatinine 0.6 mg/dL (0.6-1.0) Estimated GFR (Cockcroft-Gault) 128.0 Objective: Assessment: 1. Right lower extremity cellulitis, improving. 2. Small right lower leg wound injury, healing. 3. Cerebral palsy. 4. Morbid obesity. Plan: Plan of Care keflex Local wound care TAVO REEVES MD Jan 20, 2018 11:09
--- NOTE | 2018-01-20 14:18 | RAD ---
Two-view left hand dated 01/20/2018. No comparison available. CLINICAL INDICATION: Pain at first digit. FINDINGS: 2 views left hand show normal bony alignment. No displaced fracture. Mild degenerative change of the interphalangeal joints throughout. No periostitis or bone destruction. Mild degenerative change of the first carpometacarpal joint and scaphotrapezial joint. IMPRESSION: 1. No acute radiographic abnormality. 2. Mild degenerative changes as described above. Electronically signed by: Randy Scott MD (01/20/2018 2:14 PM) [id number]
[2018-01-20 15:00] VITALS: BP 135/84
== END 2018-01-20 17:10 | disposition home or self-care (01) | DRG 603 ==
LOC: ER 10:24 → 5 SOUTH 11:21
PROVIDERS: ADMIT Internal Medicine; ATTEND Internal Medicine
DX: L03.115 Cellulitis of right lower limb (principal); Z68.41 Body mass index [BMI] 40.0-44.9, adult; I69.351 Hemiplegia and hemiparesis following cerebral infarction affecting right dominant side; E66.01 Morbid (severe) obesity due to excess calories; E87.6 Hypokalemia; G80.9 Cerebral palsy, unspecified; I10 Essential (primary) hypertension; Z96.641 Presence of right artificial hip joint; F32.9 Major depressive disorder, single episode, unspecified; Z82.49 Family history of ischemic heart disease and other diseases of the circulatory system; Z83.3 Family history of diabetes mellitus; Z99.3 Dependence on wheelchair; Z88.5 Allergy status to narcotic agent; Z88.8 Allergy status to other drugs, medicaments and biological substances; S89.91XA Unspecified injury of right lower leg, initial encounter
CPT/HCPCS: 36415; 73120; 76881; 80048; 82565; 82962; 85025; 87641; J1650; J3370; J7030; J7040; 99285-25

== ENCOUNTER → 2018-03-18 | Outpatient (CLI) | payer MEDICARE, OTHER ==
[~2018-03-18] MED LIST changes: +CEPH-263 PO
--- NOTE | 2018-03-18 16:05 | KCIC ---
Right lower extremity venous duplex ultrasound study without comparison for right lower externally pain and swelling. TECHNIQUE AND FINDINGS: Real-time grayscale and color and spectral Doppler evaluation of the veins of the right lower extremity is performed. The right common femoral, superficial femoral, and popliteal veins are patent demonstrating normal compressibility and augmentation of flow. Veins of the calf are not well seen due to girth of the calf, and the presence of subcutaneous edema diffusely. IMPRESSION: 1. No evidence of DVT above the calf veins. Calf veins are not visualized. Electronically signed by: Mario Lombardo MD (03/18/2018 4:02 PM) [id number]
--- NOTE | 2018-03-19 12:24 | KCIC ---
Bilateral digital screening mammograms: Reason for examination: Routine screening. New baseline. Interpretation was made with the benefit of CAD. The skin and nipples show no abnormalities. No abnormal axillary lymph nodes are seen. The breast parenchyma shows scattered fibroglandular density. (Breast density: Category B.) There are small nodules at the 10:00 C and 10:00 A positions of the right breast as well as some parenchymal density at the 11:00 B position of the right breast. Further evaluation with coned compression views and ultrasound is recommended. There are no other dominant masses, suspicious calcifications or architectural distortions. Impression: Nodules at the 10:00 A and 10:00 C positions of the right breast and some nodular parenchymal density at the 11:00 B position of the right breast. Recommend further evaluation with coned compression views and ultrasound. BI-RADS Category 0: Incomplete. Needs additional imaging evaluation. "Our facility is accredited by the [employer] Mammography Program." This patient's information has been entered into a reminder system for the patient to be notified with the results of her examination and a target date for the next mammogram. Electronically signed by: Anahi Ross MD (03/19/2018 12:21 PM) [facility]
== END | disposition home or self-care (01) ==
LOC: KCIC MAMMO 13:53
PROVIDERS: ATTEND Family Medicine
DX: Z12.31 Encounter for screening mammogram for malignant neoplasm of breast (principal); M79.89 Other specified soft tissue disorders; N63.11 Unspecified lump in the right breast, upper outer quadrant
CPT/HCPCS: 77067; 93971

== ENCOUNTER → 2018-04-16 | Outpatient (CLI) | payer MEDICARE, OTHER ==
[~2018-04-16] MED LIST changes: -HYDR-2758 PO; +HYDR-2761 PO
--- NOTE | 2018-04-16 15:09 | KCIC ---
Right breast diagnostic digital mammograms: Reason for examination: Nodular densities on screening mammogram. Comparison is made to mammographic exam dated 03/18/2018. Coned compression views were obtained in CC and lateral projections. Nodules persist at the 10:00 A and 10:00 B positions and there is suggestion of a small nodular density in the 12:00 position. These show no associated calcification. Further evaluation with with ultrasound will follow. IMPRESSION: Small nodules persist in the right breast. Ultrasound to follow. BI-RADS Category 0: Incomplete. Needs additional imaging evaluation. Right breast ultrasound: Ultrasound examination was performed in the area of mammographic concern in the upper outer quadrant and at the right axilla. In the 10:00 position 6 cm from the nipple, there is a 1.1 cm hypoechoic lesion with a fibrocystic appearance. One cystic component of this lesion appears to measure 5.8 mm in greatest dimension. In the 10:00 position 10 cm from the nipple, there is a 4 mm hypoechoic lesion with a benign fibrocystic appearance. In the 11:00 position 15 cm from the nipple, there is a 7.6 mm hypoechoic fibrocystic type nodule. In the 12:00 position 12 cm from the nipple, there is a 7.9 mm fibrocystic lesion with a benign appearance. No suspicious lesions are seen. No abnormal appearing lymph nodes are seen in the axilla. IMPRESSION: Several small nodules measuring up to 1.1 cm in size with benign cystic/fibrocystic appearances. Recommend 6 month follow-up with right breast mammograms and ultrasound. BI-RADS Category 3: Probably Benign. "Our facility is accredited by the [employer] Mammography [employer]." This patient's information has been entered into a reminder system for the patient to be notified with the results of her examination and a target date for the next mammogram. Electronically signed by: Anahi Ross MD (04/16/2018 3:05 PM) [facility]
== END ==
LOC: KCIC MAMMO 12:56
PROVIDERS: ATTEND Family Medicine
DX: N63.11 Unspecified lump in the right breast, upper outer quadrant (principal)
CPT/HCPCS: 76641; 77065

== ENCOUNTER → 2018-11-05 | Outpatient (CLI) | payer MEDICARE, OTHER ==
[~2018-11-05] MED LIST changes: +TRAZ-118 PO; -TRAZ-85 PO
--- NOTE | 2018-11-05 12:45 | RAD ---
DATE: 11/05/2018 EXAM: DIGITAL DIAGNOSTIC RT, BREAST RIGHT HISTORY: Six-month follow-up COMPARISON: 03/18/2018 This study was interpreted with the benefit of Computerized Aided Detection (CAD). Breast Density: SCATTERED The breast parenchyma shows scattered fibroglandular densities. Breast parenchyma level B. FINDINGS: Several small smooth breast nodules are redemonstrated in the lateral aspect of the left breast and at the 12:00 location. These appear unchanged. No new or enlarging breast density is seen. Benign type calcifications are present. No suspicious microcalcifications have developed. Right breast ultrasound, 11/05/2018: A targeted ultrasound exam of the right breast was performed in the areas of abnormality delineated on the 04/16/2018 exam. At the 10:00 location approximately 6 cm from the nipple there is an elongated partially cystic nodule measuring 9 x 6 x 3 mm. It has shown no increase in size since the previous study. At the 10:00 location approximately 10 cm from the nipple there is a 5 x 5 x 3 mm smooth hypoechoic nodule with low level internal echoes. It is wider than tall. It appears to be of similar size when compared to the previous study. At the 12:00 location approximately 12 cm from the nipple there is an 8 x 4 x 3 mm smooth hypoechoic nodule. There are minimal low level internal echoes. There is posterior acoustic enhancement. It is wider than tall. This is probably a cyst. At the 11:00 location approximately 15 cm of the nipple there is a 9 x 8 x 4 mm smooth hypoechoic nodule. It is wider than tall. There are low level internal echoes. Allowing for technical differences it appears to be of similar size when compared to the previous study. IMPRESSION: Stable, probably benign right breast nodules as described above. Follow-up right breast ultrasound and bilateral mammography in 6 months is suggested. BI-RADS CATEGORY: 3 PROBABLY BENIGN FINDING(S)-SHORT INTERVAL FOLLOW-UP SUGGESTED RECOMMENDED FOLLOW-UP: 6M 6 MONTH FOLLOW-UP PQRS compliance statement: Patient information was entered into a reminder system with a target due date for the next mammogram. Mammography is a sensitive method for finding small breast cancers, but it does not detect them all and is not a substitute for careful clinical examination. A negative mammogram does not negate a clinically suspicious finding and should not result in delay in biopsying a clinically suspicious abnormality. "Our facility is accredited by the [employer] Mammography Program."
== END | disposition home or self-care (01) ==
LOC: MAMMO 10:31
PROVIDERS: ATTEND Family Medicine
DX: Z09 Encounter for follow-up examination after completed treatment for conditions other than malignant neoplasm (principal); N63.21 Unspecified lump in the left breast, upper outer quadrant
CPT/HCPCS: 76641; 77065

== ENCOUNTER → 2019-05-18 | Outpatient (CLI) | payer BC, MEDICAID ==
--- NOTE | 2019-05-18 14:58 | KCIC ---
BILATERAL DIAGNOSTIC MAMMOGRAPHY AND RIGHT BREAST ULTRASOUND History: Six-month follow-up. Comparison: Right breast ultrasound November 05, 2018 and 04/16/2018. Technique: Bilateral digital mammogram views were obtained. Findings: Breast Tissue Density B : There are scattered areas of fibroglandular density. Nodularity of the right breast 10:00 A and 10:00 C positions There are no dominant masses, suspicious microcalcifications or architectural distortion. Real-time ultrasound imaging of the right breast is performed. At the 10:00 position 6 cm from the nipple well-circumscribed, parallel fibrocystic change measures up to 1 cm, previously 1.1 cm. At the 10:00 position 10 cm from the nipple fibrocystic change measures up to 3 mm, slightly smaller. At the 12:00 position 12 cm from the nipple, there is a 4 mm cyst or fibrocystic change, now smaller. At the 11:00 position 15 cm from the nipple, there is fibrocystic change versus an intramammary lymph node that measures up to 7 mm. Size is stable. No abnormal axillary lymph nodes are seen. IMPRESSION: 1. Stable bilateral mammogram. 2. Fibrocystic changes of the right breast are stable or improved compared to March 2018. Recommend return to routine mammogram screening. BI-RADS category 2: Benign findings. The images were reviewed with computer-aided detection. Patient information is entered into the reminder system with a target due date for the next screening mammogram. Mammography is the most sensitive method for finding small breast cancers, but it does not detect them all and is not a substitute for careful clinical examination. A negative mammogram does not negate a clinically suspicious finding and should not result in delay in biopsying a clinically suspicious abnormality. "Our facility is accredited by the [employer] Mammography Program." Electronically signed by: Nestor Romo MD (05/18/2019 2:55 PM) [facility]
--- NOTE | 2019-05-18 17:02 | KCIC ---
EXAM: RIGHT SHOULDER 3 VIEWS. HISTORY: Right shoulder pain and limited range of motion. COMPARISON: None. FINDINGS: There are chronic healed fracture deformities of the proximal humeral diaphysis and metadiaphysis. These result in a moderate medial and anterior bowing deformity of approximately 35 degrees. The proximal humerus appear somewhat gracile, likely a developmental finding. Glenohumeral joint spaces and alignment appear maintained. A small inferiorly directed clavicular osteophyte indicates mild acromioclavicular osteoarthritis. IMPRESSION: 1. Chronic healed fracture deformities of the right proximal humerus result in approximately 35 degrees medial and anterior bowing. 2. Mild acromioclavicular osteoarthritis. Electronically signed by: Marcus Ivey MD (05/18/2019 4:59 PM) [facility]
== END | disposition home or self-care (01) ==
LOC: KCIC US 12:45
PROVIDERS: ATTEND Family Medicine
DX: R92.8 Other abnormal and inconclusive findings on diagnostic imaging of breast (principal); M19.011 Primary osteoarthritis, right shoulder; M25.711 Osteophyte, right shoulder
CPT/HCPCS: 73030; 76641; 77066

== ENCOUNTER → 2019-07-20 | Outpatient (CLI) | payer BC, MEDICAID ==
--- NOTE | 2019-07-20 15:39 | KCIC ---
MR of the right shoulder HISTORY: Right shoulder pain. Decreased range of motion. TECHNIQUE: Routine multiple planar sequences are obtained. FINDINGS: Severe motion degradation despite repeating scans. The acromioclavicular joint is mildly degenerative. No large full-thickness or retracted rotator cuff tear. Mild subdeltoid bursal fluid. No large glenohumeral joint effusion. No obvious labral tear. Biceps tendon is poorly seen. No evidence of acute fracture. No aggressive bone destruction. No acute soft tissue abnormality. IMPRESSION: Exam is substantially limited by severe motion degradation. No evidence of large or retracted rotator cuff tear. Electronically signed by: Randy Prasad MD (07/20/2019 3:36 PM) [facility]
== END ==
LOC: KCIC MRI 13:18
PROVIDERS: ATTEND Orthopaedic Surgery Sports Medicine
DX: M19.011 Primary osteoarthritis, right shoulder (principal)
CPT/HCPCS: 73221

== ENCOUNTER → 2019-07-30 | Outpatient (CLI) | payer MEDICARE, MEDICAID ==
--- NOTE | 2019-07-30 15:15 | RAD ---
MRI right shoulder INDICATION: Right rotator cuff tear. COMPARISON: Right shoulder MRI of 07/20/2019. TECHNIQUE: Axial motion suppression fat sat proton density and sagittal T1-weighted MR images of the right shoulder were obtained after initial web marketing coordinator images. FINDINGS: Marked motion artifact is present on the acquired images despite the use of motion suppression techniques. Patient has a flexion contracture of the forearm with continuous tremors. Technologist also reports the patient has some developmental delay and claustrophobia. The marrow signal on the available images is unremarkable and significant muscle atrophy is not appreciated on this exam. No significant joint effusion. There is slight deformity to the proximal humeral diaphysis on the T1-weighted sequence that suggest the presence of either a sessile osteochondroma or residual deformity from old trauma. No acute fractures noted. No marrow edema seen. IMPRESSION: Severe motion degradation even worse than before is present but no large rotator cuff tear is identified. Consider rescheduling when the patient is better able to tolerate positioning including possible use of anxiolytic agents. Alternatively, arthrogram can be considered in evaluation for full-thickness rotator cuff tear. Electronically signed by: Enzo Fisher MD (07/30/2019 3:12 PM) [id number]
== END | disposition home or self-care (01) ==
LOC: MRI 12:38
PROVIDERS: ATTEND Orthopaedic Surgery Sports Medicine
DX: M21.821 Other specified acquired deformities of right upper arm (principal); F40.240 Claustrophobia; M24.50 Contracture, unspecified joint
CPT/HCPCS: 73221

== ENCOUNTER 2019-09-30 20:43 | Emergency (ER) | payer MEDICARE, MEDICAID ==
[~2019-09-30] VITALS: Ht 157.5 cm; Wt 90.9 kg
[2019-09-30] MEDS ORDERED: fentaNYL PF VIAL 100 MCG/2 ML VIAL IM ONE (22:00)
--- NOTE | 2019-09-30 22:02 | RAD ---
EXAM: AP and lateral views left humerus AP, lateral and radial head views of the left elbow DATE: 09/30/2019 8:58 PM INDICATION: Left arm and elbow pain COMPARISON: No Prior FINDINGS: No evidence of acute fracture or dislocation. Left elbow joint degenerative changes are seen. No significant elbow joint effusion. AC joint degenerative changes are seen. Small glenohumeral joint osteophytes. IMPRESSION: No acute fracture or dislocation of the left humerus or left elbow. Mild degenerative changes of the left elbow, left shoulder joint and left AC joint. Electronically signed by: Paul Funk MD (09/30/2019 9:59 PM) [facility]
--- NOTE | 2019-09-30 22:04 | RAD ---
Exam:Left ribs with PA chest Date: 09/30/2019 8:58 PM Comparison: 11/08/2017, 10/24/2018 Indication: Fall Findings/ Impression: The heart is not enlarged. Mediastinal and hilar contours are stable. No focal parenchymal airspace opacity. No pleural effusion or pneumothorax. AP, Oblique and Spot images of left ribs demonstrate mild cortical offset at the posterior lateral aspect of the left fourth rib suspicious for nondisplaced left rib fracture. This can be correlated with patient's symptoms. No other left rib fracture is definitively seen. Negative focal pleural elevation. Symmetrical intercostal spacing. It is of note that an acute non-displaced rib fracture can be in-apparent on initial post-trauma imaging. Electronically signed by: Paul Funk MD (09/30/2019 10:01 PM) [facility]
[2019-09-30] MEDS ORDERED: TRAM50TA PO (22:22)
--- NOTE | 2019-09-30 22:22 | PHYS DOC ---
Past Medical History Past Medical History: Hypertension, UTI, Other Additional Past Medical Histor: cerebral palsy, prediabetes, MRDD Past Surgical History: Other Additional Past Surgical Histo: R hip, R knee, Cellulitis Drainage - R leg Smoking Status: Never Smoker Alcohol Use: None Drug Use: None General Adult EDM: Chief Complaint: MECHANICAL FALL HPI: HPI: Patient is a 54 year old female who presents via EMS after reportedly falling at home. Patient reportedly had lost balance and fell onto her side, hitting a table. Patient complains of pain in her left upper arm as well as her left ribs. Patient denies any head injury or loss of consciousness. She rates pain to be a 9 out of 10 and states the pain is worsened with movement of affected areas. [] Review of Systems: Review of Systems: Constitutional: Denies fever or chills. [] Respiratory: Denies cough or shortness of breath. [] Cardiovascular: Denies chest pain or edema. [] GI: Denies abdominal pain, nausea, vomiting or diarrhea. [] Musculoskeletal: Complains of left upper arm and rib pain. [] Integument: Denies rash. [] Neurologic: Denies headache, focal weakness or sensory changes. [] A full 10 point review of systems has been reviewed and is otherwise negative. Heart Score: Risk Factors: Risk Factors: DM, Current or recent (<one month) smoker, HTN, HLP, family history of CAD, obesity. Risk Scores: Score 0 - 3: 2.5% MACE over next 6 weeks - Discharge Home Score 4 - 6: 20.3% MACE over next 6 weeks - Admit for Clinical Observation Score 7 - 10: 72.7% MACE over next 6 weeks - Early Invasive Strategies Current Medications: Current Medications Medications (Trade) Dose Ordered Sig/[facility] Start Time Stop Time Status Last Admin Dose Admin Fentanyl Citrate (Fentanyl 2ml Vial) 50 mcg 1X ONCE 09/30/19 22:00 09/30/19 22:01 DC Allergies: Allergies: Allergies Coded Allergies Type Severity Reaction Last Updated Verified CARISSA Inhibitors Allergy Intermediate Edema 01/17/18 Yes amphetamine Allergy Intermediate Edema 01/17/18 Yes dextroamphetamine Allergy Intermediate Edema 01/17/18 Yes lisinopril Allergy Intermediate Edema 01/17/18 Yes ziprasidone Allergy Intermediate Edema 01/17/18 Yes Physical Exam: PE: Constitutional: Well developed, well nourished, no acute distress, non-toxic appearance. [] HENT: Normocephalic, atraumatic, bilateral external ears normal, oropharynx moist, no oral exudates, nose normal. [] Eyes: PERRLA, EOMI, conjunctiva normal, no discharge. [] Neck: Normal range of motion, no tenderness, supple, no stridor. [] Cardiovascular: Regular rate and rhythm [] Lungs & Thorax: Bilateral breath sounds clear to auscultation [] Abdomen: Bowel sounds normal, soft, no tenderness. [] Skin: Warm, dry, no erythema, no rash. [] Extremities: There is tenderness with abrasion noted to the inner aspect of left upper arm. [] Neurologic: Awake and alert, no focal deficits noted. [] Current Patient Data: Vital Signs: Vital Signs Date Time Temp Pulse Resp B/P (MAP) Pulse Ox O2 Delivery O2 Flow Rate FiO2 09/30/19 20:45 99.2 87 24 145/71 (95) 94 Room Air 99.2 EKG: EKG: [] Radiology/Procedures: Radiology/Procedures: [] Impression: PROCEDURE: RIBS LEFT AND PA CHEST Exam:Left ribs with PA chest Date: 09/30/2019 8:58 PM Comparison: 11/08/2017, 10/24/2018 Indication: Fall Findings/ Impression: The heart is not enlarged. Mediastinal and hilar contours are stable. No focal parenchymal airspace opacity. No pleural effusion or pneumothorax. AP, Oblique and Spot images of left ribs demonstrate mild cortical offset at the posterior lateral aspect of the left fourth rib suspicious for nondisplaced left rib fracture. This can be correlated with patient's symptoms. No other left rib fracture is definitively seen. Negative focal pleural elevation. Symmetrical intercostal spacing. It is of note that an acute non-displaced rib fracture can be in-apparent on initial post-trauma imaging. Electronically signed by: Paul Funk MD (09/30/2019 10:01 PM) [facility] Course & Med Decision Making: Course & Med Decision Making Pertinent Labs and Imaging studies reviewed. (See chart for details) [] Dragon Disclaimer: Dragon Disclaimer: This electronic medical record was generated, in whole or in part, using a voice recognition dictation system. Departure Departure Impression: Primary Impression: Contusion of rib on left side Qualified Codes: S20.212A - Contusion of left front wall of thorax, initial encounter Additional Impressions: Contusion of left arm Qualified Codes: S40.022A - Contusion of left upper arm, initial encounter Left rib fracture Qualified Codes: S22.32XA - Fracture of one rib, left side, initial encounter for closed fracture Disposition: HOME, SELF-CARE Condition: STABLE Referrals: JEANNE LARA MD (PCP) Patient Instructions: Contusion, Rib Contusion Scripts Hydrocodone/Apap 5-325 (NORCO 5-325 TABLET) 1 Each Tablet 1-2 EACH PO PRN Q6HRS PRN for PAIN, #15 as needed for pain Prov: AZUCENA BARRIENTOS Jr. DO 09/30/19 Tramadol Hcl (TRAMADOL HCL) 50 Mg Tablet 50 MG PO Q6HRS PRN for PAIN, #12 TAB Prov: AZUCENA BARRIENTOS Jr. DO 09/30/19 AZUCENA BARRIENTOS Jr. DO September 30, 2019 22:22
[2019-09-30] MEDS ORDERED: HYDR-3164 PO (22:32)
[2019-09-30 23:30] VITALS: BP 124/80
== END 2019-09-30 23:30 | disposition home or self-care (01) ==
LOC: ER 20:43
DX: S22.32XA Fracture of one rib, left side, initial encounter for closed fracture (principal); S20.212A Contusion of left front wall of thorax, initial encounter; S40.022A Contusion of left upper arm, initial encounter; M25.522 Pain in left elbow; I10 Essential (primary) hypertension; Z98.890 Other specified postprocedural states; Z88.6 Allergy status to analgesic agent; Z88.8 Allergy status to other drugs, medicaments and biological substances; Z88.2 Allergy status to sulfonamides; Z88.1 Allergy status to other antibiotic agents; W18.09XA Striking against other object with subsequent fall, initial encounter; Y93.89 Activity, other specified; Y92.89 Other specified places as the place of occurrence of the external cause; Y99.8 Other external cause status
CPT/HCPCS: 71101; 73060; 73080; 96372; 99285; J3010

== ENCOUNTER → 2020-01-19 | Day surgery (SDC) | payer MEDICARE, MEDICAID ==
[~2020-01-19] MED LIST changes: +HYDR-3164 PO; +IV RINGERS,LACTATED 1000ML 1,000 ML IV SCH; +LIDOCAINE 2% PF 5 ML VIAL. ONE; +PROPOFOL 10 MG/ML (20ML) VIAL. IV ONE
--- NOTE | 2020-01-19 12:51 | PDOC1 ---
History and Physical Date of Admission Date of Admission DATE: 01/19/20 TIME: 12:40 Identification/Chief Complaint Chief Complaint Screen for Colon Cancer Source Source: Chart review, Patient History of Present Illness History of Present Illness 54 y/o female here for CRC screening. No prior. Limited response verbally but seem to answer yes and no questions appropriately. Denies heartburn or dysphagia, though GERD listed as problem on PCP notes. Is on ranitidine. No PUD, GB, liver or pancreatic history. No tobacco or alcohol use. Varies from loose to firm stools w/o overt bleeding. No signs of wt. loss. Thinks GIFH negative. Past Medical History Cardiovascular: HTN CENTRAL NERVOUS SYSTEM: Other (Cerebral palsy) Heme/Onc: Iron deficiency Anemia (felt due to dysfunctional uterine bleeding) Hepatobiliary: No pertinent hx Psych: Depression Past Surgical History Past Surgical History: Total hip replacement, Other (STSG after madden, Left CTR) Family History Family History: Diabetes, Heart Disease, Hypertension Social History Smoke: No ALCOHOL: none Drugs: None Current Medications Current Medications Active Scripts Active [place] 5-325 Tablet (Acetaminophen/Hydrocodone Bitart) 1 Each Tablet 1-2 Each PO PRN Q6HRS PRN as needed for pain Tramadol Hcl 50 Mg Tablet 50 Mg PO Q6HRS PRN Keflex (Cephalexin) 250 Mg Capsule 1 Cap PO QID Vancomycin Hcl 500 Mg Vial 125 Mg PO [id number] 14 Days [Fluconazole] 100 MG Tablet 200 Mg PO DAILY 5 Days Cefpodoxime Proxetil 100 Mg Tablet 200 Mg PO BID 7 Days Children's Aspirin (Aspirin) 81 Mg Tab.chew 81 Mg PO [id number] 30 Days [hctz] 12.5 Mg PO DAILY Reported Hydrochlorothiazide Tablet (Hydrochlorothiazide) 12.5 Mg Tablet 1 Tab PO DAILY Baclofen 10 Mg Tablet 1 Tab PO TID Guaiasorb Dm Liquid (Guaifenesin/Dextromethorphan) 118 Ml Liquid 118 Ml PO Lyrica (Pregabalin) 150 Mg Capsule 150 Mg PO BID 30 Days Ibuprofen 800 Mg Tablet 800 Mg PO TIDAFTMEAL PRN PRN Ferrous Sulfate 325 Mg Tablet 325 Mg PO TID Cerovite Advanced Form Tab (Multivitamin/Iron/Folic Acid) 1 Each Tablet 1 Each PO DAILY Calcium Carbonate 600 Mg Tablet 600 Mg PO DAILY Triamcinolone Acetonide 0.5% Cream (Triamcinolone Acetonide) 15 Gm Cream..g. 1 Jessica TP BID Tylenol Extra Strength (Acetaminophen) 500 Mg Tablet 500 Mg PO PRN QID PRN Vitamin D3 (Cholecalciferol (Vitamin D3)) 1,000 Unit Capsule 1,000 Unit PO Sertraline Hcl 100 Mg Tablet 100 Mg PO DAILY Loratadine 10 Mg Tablet 1 Tab PO DAILY Gabapentin (Gabapentin) 100 Mg Capsule 100 Mg PO BID Fluticasone Propionate Nasal [place] (Fluticasone Propionate) 16 Gm [place].susp 2 [place] NS DAILY Allergies Allergies: Coded Allergies: CARISSA Inhibitors (Verified Allergy, Intermediate, Edema, 01/17/18) amphetamine (Verified Allergy, Intermediate, Edema, 01/17/18) dextroamphetamine (Verified Allergy, Intermediate, Edema, 01/17/18) lisinopril (Verified Allergy, Intermediate, Edema, 01/17/18) ziprasidone (Verified Allergy, Intermediate, Edema, 01/17/18) ROS Review of System Otherwise non-contributory Physical Exam General: Alert, Oriented X3, Cooperative, No acute distress Lungs: Clear to auscultation Heart: S1S2, RRR, no gallops, no murmurs Abdomen: Normal bowel sounds, Soft, No tenderness, No hepatosplenomegaly, No masses Rectal Exam: deferred (to procedure) Extremities: No cyanosis, No edema Skin: No significant lesion Neuro: Sensation intact, Reflexes 2+, Other (abnormal speech/dysphonia, spasticity more in RUE) Psych/Mental Status: Mental status NL, Mood NL Vitals Vitals See nursing records. VTE Prophylaxis Ordered VTE Prophylaxis Devices: No VTE Pharmacological Prophylaxi: No Assessment/Plan Assessment/Plan IMP: Appears at average risk for CRC. PLAN: Colonoscopy. TERRY BOB MD Jan 19, 2020 12:51
--- NOTE | 2020-01-19 14:21 | PDOC4 ---
PROCEDURE Procedure Colonoscopy Indication: screen, average-risk Meds: per anesthesia Findings: LIZBETH normal. --'Scope advanced to cecum. Mucosa normal. Prep adequate. No abnormalities identified. [place]. well. IMP: Normal colon. REC: Repeat exam in 10 years. TERRY BOB MD Jan 19, 2020 14:21
[2020-01-19 14:35] VITALS: BP 125/72
== END | disposition home or self-care (01) ==
LOC: SURG 12:07
PROVIDERS: ATTEND Internal Medicine Gastroenterology
DX: Z12.11 Encounter for screening for malignant neoplasm of colon (principal); Z20.828 Contact with and (suspected) exposure to other viral communicable diseases; I10 Essential (primary) hypertension; D50.8 Other iron deficiency anemias; N93.8 Other specified abnormal uterine and vaginal bleeding; F32.9 Major depressive disorder, single episode, unspecified; Z96.642 Presence of left artificial hip joint; Z79.899 Other long term (current) drug therapy; Z88.8 Allergy status to other drugs, medicaments and biological substances; Z83.3 Family history of diabetes mellitus; Z82.49 Family history of ischemic heart disease and other diseases of the circulatory system
CPT/HCPCS: 87426; G0121; J2704; U0003; 45378

== ENCOUNTER → 2020-09-01 | Outpatient (CLI) | payer MEDICARE, MEDICAID ==
[2020-01-19 14:35] VITALS: BP 125/72
[~2020-09-01] MED LIST changes: -IV RINGERS,LACTATED 1000ML 1,000 ML IV SCH; -LIDOCAINE 2% PF 5 ML VIAL. ONE; -LISI-334 PO; +LISI20TA18 PO; -PROPOFOL 10 MG/ML (20ML) VIAL. IV ONE; +SERT-268 PO; -SERT100T8 PO
--- NOTE | 2020-09-01 11:37 | KCIC ---
Bilateral digital screening mammograms: Reason for examination: Routine screening. Comparison is made to previous studies dated between 05/18/2019 and 03/18/2018. Interpretation was made with the benefit of CAD. The skin and nipples show no abnormalities. No abnormal axillary lymph nodes are seen. The breast par enchyma shows scattered fibroglandular density. (Breast density: Category B.) There continues to be a nodule consistent with an intramammary lymph node at the 10:00 position posteriorly in the right belinda ast which is stable. The small nodule seen anteriorly in the upper outer quadrant of the right breast has resolved. There also continues to be a small nodule posterior medially in the left breast which is stable. There are no new dominant masses, suspicious calcifications or architectural distortions. Impression: No evidence of malignancy. Recommend routine screening. BI-RADS Category 2: Benign. "Our facility is accredited by the [employer] Mammography Program." This patient's information has been entered into a reminder system for the patient to be notified wit h the results of her examination and a target date for the next mammogram. Electronically signed by: Anahi Ross MD (09/01/2020 11:35 AM) [facility]
== END ==
LOC: KCIC MAMMO 10:05
PROVIDERS: ATTEND Family Medicine
DX: Z12.31 Encounter for screening mammogram for malignant neoplasm of breast (principal)
CPT/HCPCS: 77067

== ENCOUNTER 2020-09-27 15:58 | Emergency (ER) | payer MEDICARE, MEDICAID ==
[~2020-09-27] VITALS: Ht 157.5 cm; Wt 98.6 kg
[2020-09-27] MEDS ORDERED: FLUT15.812 NS (17:06)
[2020-09-27] MEDS ORDERED: DICL100G24 TP (17:06)
[2020-09-27] MEDS ORDERED: METF10007 PO (17:06)
[2020-09-27] MEDS ORDERED: CETI10TA16 PO (17:06)
[2020-09-27] MEDS ORDERED: AMLO-186 PO (17:06)
[2020-09-27] MEDS ORDERED: traMADol 50 MG TABLET PO ONE (17:15)
[2020-09-27 17:57] LABS: BILIRUBIN,URINE NEGATIVE (NEG); CLARITY,URINE CLEAR; COLOR,URINE YELLOW; NITRITE,URINE NEGATIVE (NEG); PH,URINE 6.5 (<5.0-8.0); PROTEIN,URINE NEGATIVE (NEG-TRACE); UROBILINOGEN,URINE 0.2 mg/dL (0.2 mg/dL)
[2020-09-27 18:13] LABS: AMORPHOUS SEDIMENT,UR PRESENT /HPF
[2020-09-27 18:14] LABS: WBC,URINE OCC /HPF (0-4)
[2020-09-27 18:26] LABS: RBC,URINE 0 /HPF (0-2)
[2020-09-27 18:31] LABS: BACTERIA,URINE 0 /HPF (0-FEW)
--- NOTE | 2020-09-27 19:11 | RAD ---
Exam: CT cervical spine without contrast INDICATION: Neck pain TECHNIQUE: Sequential axial images through the cervical spine obtained without IV contrast. Sagittal and coronal reformatted images were reconstructed from the axial data and reviewed. Exposure: One or more of the following in the visualized dose reduction techniques were utilized for this examination: 1. Automated exposure control 2. Adjustment of the MA and/or KV according to patient size 3. Use of iterative of reconstructive technique Comparisons: None FINDINGS: Visualized intracranial structures are unremarkable. Straightening of cervical spine which may positional. Vertebral body heights are well-maintained. Fracture to the cervical spine is not identified. Multilevel spondylotic change in cervical spine with degenerative disc disease greatest at C4-C5 and C5-C6. Mild bilateral facet arthropathy is also noted. Visualized paraspinal soft tissues are unremarkable. IMPRESSION: Negative CT C-spine for acute traumatic injury. Electronically signed by: Stephanie Gutierrez MD (09/27/2020 7:09 PM) [facility]
--- NOTE | 2020-09-27 19:18 | RAD ---
STUDY: CT chest without contrast INDICATION: Thoracic spine and rib pain. COMPARISON: None recently. TECHNIQUE: Helical CT imaging of the chest performed without the use of intravenous contrast. Sagitta l and coronal reformats were obtained. One or more of the following individualized dose reduction techniques were utilized for this examinat ion: 1. Automated exposure control 2. Adjustment of the mA and/or kV according to patient size 3. Use of iterative reconstruction technique. FINDINGS: Vasculature: Nonaneurysmal aorta. Calcific coronary artery disease. Mildly enlarged heart. Mediastinum/lyudmila: A few calcified granulomas. No pathologically enlarged noncalcified lymph nodes. Lungs: Scattered atelectasis. No confluent infiltrate, pleural effusion, pneumothorax or suspicious l leo nodule. Neck/axilla/chest wall: Unremarkable thyroid. No axillary adenopathy. Bones: Slight undulation along the lateral aspect of the left fourth rib, image 24 series 2. No displ aced rib fracture on the right or left. No acute fracture seen at the shoulder girdles. Intact sternu m. No concerning thoracic vertebral body height loss. No acute fracture of the posterior elements. No traumatic malalignment. Scattered spondylosis. Upper abdomen: Numerous splenic and hepatic granulomas. IMPRESSION: 1. Slight cortical undulation along the lateral aspect of the left fourth rib (image 24 series 2) in determinant for a chronic finding or a nondisplaced fracture. Correlate for localized tenderness. 2. A few chronic observations detailed in the body the report to include mild calcific coronary brody ry disease. Electronically signed by: TAHMINA CHENG MD (09/27/2020 7:16 PM) [facility]
--- NOTE | 2020-09-27 19:21 | RAD ---
STUDY: CT thoracic spine without contrast INDICATION: Back pain. COMPARISON: Same day CT chest TECHNIQUE: Reconstructed smaller [id number] images through the thoracic spine with the data obtain ed from the same day CT chest exam. Coronal and sagittal reformats were obtained. One or more of the following individualized dose reduction techniques were utilized for this examinat ion: 1. Automated exposure control 2. Adjustment of the mA and/or kV according to patient size 3. Use of iterative reconstruction technique. FINDINGS: Degraded study due to image noise. No acute fracture is identified or traumatic malalignment. No deisy re osseous neural foraminal stenosis. No CT evidence for significant central canal narrowing. IMPRESSION: No acute fracture or traumatic malalignment. It is uncertain based off of the provided history if the re has been trauma. If the patient's back pain is nontraumatic and persists, eventual MRI would be mo re sensitive. Electronically signed by: TAHMINA CHENG MD (09/27/2020 7:19 PM) [facility]
--- NOTE | 2020-09-27 21:47 | PHYS DOC ---
Past Medical History Past Medical History: Anemia, CVA, Hypertension, UTI, Other Additional Past Medical Histor: cerebral palsy, prediabetes, MRDD Past Surgical History: Other Additional Past Surgical Histo: R hip, R knee, Cellulitis Drainage - R leg Smoking Status: Never Smoker Alcohol Use: None Drug Use: None General Adult EDM: Chief Complaint: BACK PAIN - NO INJURY HPI: HPI: Patient is a 55 year old 55-year-old female presents to the emergency complaining of neck and mid back pains that started yesterday. Patient lives in an assisted living fdc, fdc staff states that she has been complaining of increased pain in her back and neck for the past several days, patient usually was able to stand without assistance, now requires assistance to get to a standing position. Patient denies any recent fever or chills, chest pain, abdominal pain, nausea, vomiting, diarrhea or rashes of her skin. Patient denies any other physical complaints or physical concerns. Patient has a past medical history of MR cerebral palsy.. Review of Systems: Review of Systems: 14 body systems of review of systems have been reviewed. See HPI for pertinent positives and negative responses, otherwise all other systems are negative, nonpertinent or noncontributory. Heart Score: C/O Chest Pain: No Risk Factors: Risk Factors: DM, Current or recent (<one month) smoker, HTN, HLP, family history of CAD, obesity. Risk Scores: Score 0 - 3: 2.5% MACE over next 6 weeks - Discharge Home Score 4 - 6: 20.3% MACE over next 6 weeks - Admit for Clinical Observation Score 7 - 10: 72.7% MACE over next 6 weeks - Early Invasive Strategies Current Medications: Current Medications Medications (Trade) Dose Ordered Sig/[facility] Start Time Stop Time Status Last Admin Dose Admin Tramadol HCl (Ultram) 50 mg 1X ONCE 09/27/20 17:15 09/27/20 17:16 DC 09/27/20 17:49 50 MG Allergies: Allergies: Allergies Coded Allergies Type Severity Reaction Last Updated Verified CARISSA Inhibitors Allergy Intermediate Edema 01/18/20 Yes amphetamine Allergy Intermediate Edema 01/18/ Yes dextroamphetamine Allergy Intermediate Edema 01/18/20 Yes lisinopril Allergy Intermediate Edema 01/18/ Yes ziprasidone Allergy Intermediate Edema 01/18/ Yes Physical Exam: PE: Constitutional: Well developed, well nourished, no acute distress, non-toxic appearance. HENT: Normocephalic, atraumatic, bilateral external ears normal, oropharynx moist, no oral exudates, nose normal. Eyes: PERRLA, EOMI, conjunctiva normal, no discharge. Neck: Normal range of motion, no tenderness, supple, no stridor. Cardiovascular:Heart rate regular rhythm, no murmur Lungs & Thorax: Bilateral breath sounds clear to auscultation Abdomen: Bowel sounds normal, soft, no tenderness, no masses, no pulsatile masses. Skin: Warm, dry, no erythema, no rash. Back: No CVA tenderness on the left or right, patient has midline spine tenderness from C-spine through mid thoracic spine area, no step-offs, no crepitus, no bruising, no deformities appreciated. Extremities: No tenderness, no cyanosis, no clubbing, ROM intact, no edema. Neurologic: Alert and oriented X 3, normal motor function, normal sensory function, no focal deficits noted. Patient history of mental retardation. Psychologic: Affect normal, judgement normal, mood normal. Current Patient Data: Labs: Laboratory Tests Test 09/27/20 17:45 Urine Collection Type U cath Urine Color Yellow Urine Clarity Clear Urine pH 6.5 (<5.0-8.0) Urine Specific [place] 1.015 (1.000-1.030) Urine Protein Negative mg/dL (NEG-TRACE) Urine Glucose (UA) Negative mg/dL (NEG) Urine Ketones (Stick) Negative mg/dL (NEG) Urine Blood Negative (NEG) Urine Nitrite Negative (NEG) Urine Bilirubin Negative (NEG) Urine Urobilinogen Dipstick 0.2 mg/dL (0.2 mg/dL) Urine Leukocyte Esterase Negative (NEG) Urine RBC 0 /HPF (0-2) Urine WBC Occ /HPF (0-4) Urine Squamous Epithelial Cells Few /LPF Urine Renal Epithelial Cells Mod /LPF Urine Amorphous Sediment Present /HPF Urine Bacteria 0 /HPF (0-FEW) Urine Mucus Slight /LPF Vital Signs: Vital Signs Date Time Temp Pulse Resp B/P (MAP) Pulse Ox O2 Delivery O2 Flow Rate FiO2 09/27/20 18:10 70 25 159/87 (111) 94 Room Air 09/27/20 16:05 98.9 98.9 EKG: EKG: [] Radiology/Procedures: Radiology/Procedures: PATIENT: DEMARCUS BURNS ACCOUNT: [id number] : 1965 LOCATION: ER AGE: 55 SEX: F EXAM STATUS: REG ER ORD. PHYSICIAN: TERRY SINCLAIR APRN REASON: T-SPINE PAIN AND RIB PAIN PROCEDURE: CT CHEST WO CONTRAST STUDY: CT chest without contrast INDICATION: Thoracic spine and rib pain. COMPARISON: None recently. TECHNIQUE: Helical CT imaging of the chest performed without the use of intravenous contrast. Sagittal and coronal reformats were obtained. One or more of the following individualized dose reduction techniques were utilized for this examination: 1. Automated exposure control 2. Adjustment of the mA and/or kV according to patient size 3. Use of iterative reconstruction technique. FINDINGS: Vasculature: Nonaneurysmal aorta. Calcific coronary artery disease. Mildly enlarged heart. Mediastinum/lyudmila: A few calcified granulomas. No pathologically enlarged noncalcified lymph nodes. Lungs: Scattered atelectasis. No confluent infiltrate, pleural effusion, pneumothorax or suspicious lung nodule. Neck/axilla/chest wall: Unremarkable thyroid. No axillary adenopathy. Bones: Slight undulation along the lateral aspect of the left fourth rib, image 24 series 2. No displaced rib fracture on the right or left. No acute fracture seen at the shoulder girdles. Intact sternum. No concerning thoracic vertebral body height loss. No acute fracture of the posterior elements. No traumatic malalignment. Scattered spondylosis. Upper abdomen: Numerous splenic and hepatic granulomas. IMPRESSION: 1. Slight cortical undulation along the lateral aspect of the left fourth rib (image 24 series 2) indeterminant for a chronic finding or a nondisplaced fracture. Correlate for localized tenderness. 2. A few chronic observations detailed in the body the report to include mild calcific coronary artery disease. Electronically signed by: TAHMINA CHENG MD (09/27/2020 7:16 PM) [facility] DICTATED and SIGNED BY: TAHMINA CHENG MD DATE: 09/27/20 [id number] PATIENT: DEMARCUS BURNS ACCOUNT: [id number] : 1965 LOCATION: ER AGE: 55 SEX: F EXAM STATUS: REG ER ORD. PHYSICIAN: TERRY SINCLAIR APRN REASON: NECK PAIN PROCEDURE: CT CERVICAL SPINE WO CONTRAST Exam: CT cervical spine without contrast INDICATION: Neck pain TECHNIQUE: Sequential axial images through the cervical spine obtained without IV contrast. Sagittal and coronal reformatted images were reconstructed from the axial data and reviewed. Exposure: One or more of the following in the visualized dose reduction techniques were utilized for this examination: 1. Automated exposure control 2. Adjustment of the MA and/or KV according to patient size 3. Use of iterative of reconstructive technique Comparisons: None FINDINGS: Visualized intracranial structures are unremarkable. Straightening of cervical spine which may positional. Vertebral body heights are well-maintained. Fracture to the cervical spine is not identified. Multilevel spondylotic change in cervical spine with degenerative disc disease greatest at C4-C5 and C5-C6. Mild bilateral facet arthropathy is also noted. Visualized paraspinal soft tissues are unremarkable. IMPRESSION: Negative CT C-spine for acute traumatic injury. Electronically signed by: Stephanie Degroot MD (09/27/2020 7:09 PM) [facility] DICTATED and SIGNED BY: STEPHANIE DEGROOT MD DATE: 09/27/20 [id number] PATIENT: DEMARCUS BURNS ACCOUNT: [id number] : 1965 LOCATION: ER AGE: 55 SEX: F EXAM STATUS: REG ER ORD. PHYSICIAN: NON,STAFF REASON: BACK PAIN PROCEDURE: CT THORACIC SPINE RECONSTRUCT STUDY: CT thoracic spine without contrast INDICATION: Back pain. COMPARISON: Same day CT chest TECHNIQUE: Reconstructed smaller [id number] images through the thoracic spine with the data obtained from the same day CT chest exam. Coronal and sagittal reformats were obtained. One or more of the following individualized dose reduction techniques were utilized for this examination: 1. Automated exposure control 2. Adjustment of the mA and/or kV according to patient size 3. Use of iterative reconstruction technique. FINDINGS: Degraded study due to image noise. No acute fracture is identified or traumatic malalignment. No severe osseous neural foraminal stenosis. No CT evidence for significant central canal narrowing. IMPRESSION: No acute fracture or traumatic malalignment. It is uncertain based off of the provided history if there has been trauma. If the patient's back pain is nontraumatic and persists, eventual MRI would be more sensitive. Electronically signed by: TAHMINA CHENG MD (09/27/2020 7:19 PM) [facility] DICTATED and SIGNED BY: TAHMINA CHENG MD DATE: 09/27/20 [id number] Course & Med Decision Making: Course & Med Decision Making Pertinent Labs and Imaging studies reviewed. (See chart for details) 55-year-old female, vital signs reviewed, presents emergency department complaining of mid back pain up to her neck for the past day. Patient denies any injury, physical examination concerning for bony abnormality, versus possible urinary tract infection. A UA was ordered. P.o. pain medications were given. Patient's urine was not infected, related to patient's complaint of pain a CT of chest without, reconstruction of thoracic spine, cervical spine was ordered. Patient's it support specialist is at bedside with patient. Discussed findings with patient and patient's it support specialist. Discussed recommendation from radiologist to have further follow-up with MRI. Discussed home instructions with patient and patient's it support specialist who gave verbal understanding of discharge instructions, follow-up with PCP for recommendation for MRI, return to ER precautions or concerns, was discharged home without incident. Dragon Disclaimer: Dragtripp Disclaimer: This electronic medical record was generated, in whole or in part, using a voice recognition dictation system. Departure Departure Impression: Primary Impression: Neck pain Additional Impression: Back pain Qualified Codes: M54.6 - Pain in thoracic spine Disposition: HOME / SELF CARE / HOMELESS Condition: GOOD Referrals: JEANNE LARA MD (PCP) Additional Instructions: You are seen today in the emergency department for acute back pain, CT imaging of your C-spine and thoracic spine along with your chest did not show any concerning findings that require admission to the hospital, your urine was not infected. Please follow-up with your primary care physician for consideration of further study with an MRI. Return to the emergency department for worsening symptoms or other concerns. EMERGENCY DEPARTMENT GENERAL DISCHARGE INSTRUCTIONS Thank you for coming to [facility] Emergency Department (ED) today and trusting us with you care. We trust that you had a positive experience in our Emergency Department. If you wish to speak to the department management, you may call the Director at [phone]. YOUR FOLLOW UP INSTRUCTIONS ARE FOLLOWS: 1. Do you have a private Doctor? If you do not have a private doctor, please ask for a resource list of physicians or clinics that may be able to assist you with follow up care. 2. The Emergency Physicain has interpreted your x-rays. The X-Ray specialist will also review them. If there is a change in the findings, you will be notified in 48 hours when at all possible. 3. A lab test or culture has been done, your results will be reviewed and you will be notified if you need a change in treatment. ADDITIONAL INSTRUCTIONS AND INFORMATION: 1. Your care today has been supervised by a physician who is specially trained in emergency care. Many problems require more than one evaluation for a complete diagnosis and treatment. We recommend that you schedule your follow up appointment as recommended to ensure complete treatment of you illness or injury. If you are unable to obtain follow up care and continue to have a problem, or if your condition worsens, we recommend that you return to the ED. 2. We are not able to safely determine your condition over the phone nor are we able to give sound medical advice over the phone. For these safety reasons, if you call for medical advice we will ask you to come to the ED for further evaluation. 3. If you have any questions regarding these discharge instructions please call the ED at [phone]. SAFETY INFORMATION: In the interest of safety, wellness, and injury prevention; we encourage you to wear your sealbelt, if you smoke; quite smoking, and we encourage family to use a protective helmet for bicycling and other sporting events that present an increased risk for head injury. IF YOUR SYMPTOMS WORSEN OR NEW SYMPTOMS DEVELOP, OR YOU HAVE CONCERNS ABOUT YOUR CONDITION; OR IF YOUR CONDITION WORSENS WHILE YOU ARE WAITING FOR YOUR FOLLOW UP APPOINTMENT; EITHER CONTACT YOUR PRIMARY CARE DOCTOR, THE PHYSICIAN WHOSE NAME AND NUMBER YOU WERE GIVEN, OR RETURN TO THE ED IMMEDIATELY. TERRY SINCLAIR APRN September 27, 2020 21:47
[2020-09-27 23:10] VITALS: BP 155/69
== END 2020-09-28 00:01 | disposition home or self-care (01) ==
LOC: ER 15:58
DX: M54.2 Cervicalgia (principal); M54.6 Pain in thoracic spine; I10 Essential (primary) hypertension; Z87.440 Personal history of urinary (tract) infections; Z86.73 Personal history of transient ischemic attack (TIA), and cerebral infarction without residual deficits; Z88.6 Allergy status to analgesic agent; Z88.8 Allergy status to other drugs, medicaments and biological substances
CPT/HCPCS: 71250; 72125; 81001; 99285; P9612